=== PATIENT | male | born 1975 | race Caucasian/White ===

== ENCOUNTER → 2024-12-07 13:28 | Outpatient (CLI) | payer MEDICARE, MEDICAID, SELFPAY ==
--- NOTE | 2024-12-07 13:43 | DI.US.S_ITS ---
PROCEDURE: US SOFT TISSUE HEAD AND NECK INDICATIONS: LEFT SUBMANDIBULAR LUMP TECHNIQUE: Real-time scanning was performed of the neck region of interest, with image documentation. COMPARISON: None. FINDINGS: Normal subcutaneous tissue fascial planes. No evidence of mass lesion. IMPRESSION: Unremarkable soft tissue ultrasound. Approved by: Selvin Zavala M.D. on 12/08/2024 at 12:58
--- NOTE | 2024-12-07 13:43 | DI.US.S_ITS ---
PROCEDURE: US SCROTUM INDICATIONS: SCROTAL PAIN X 20 YEARS TECHNIQUE: Real-time scanning was performed of the scrotum and testicles, with image documentation. Color and pulse Doppler interrogation was performed of both testicles. COMPARISON: None. FINDINGS: Right: Testicle is normal in size at 4.4 x 2.5 x 3.1 cm, and homogenous in echotexture. Epididymis is normal in overall size and morphology. No hydrocele or varicoceles. Overlying scrotal skin is normal in thickness. Left: Testicle is normal in size at 4.0 x 2.4 x 2.8 cm, and homogeneous in echotexture. Epididymis is normal in overall size and morphology. No hydrocele or varicoceles. Overlying scrotal skin is normal in thickness. Doppler: Color and pulse Doppler demonstrate normal and symmetric arterial flow in both testicles. IMPRESSION: No cause for patient's pain is identified. Normal appearance of the testes and epididymides. Dictated by: Micah Chirinos M.D. on 12/08/2024 at 8:28 Approved by: Micah Chirinos M.D. on 12/08/2024 at 8:31
== END ==
PROVIDERS: Family Provider Family Medicine; Referring Provider Family Medicine; Visit Provider Family Medicine
DX: N50.89 Other specified disorders of the male genital organs; J39.8 Other specified diseases of upper respiratory tract
CPT/HCPCS: 76536; 76870; 93975

== ENCOUNTER 2025-04-22 16:19 | Inpatient (IN) | payer MEDICARE, MEDICAID, SELFPAY ==
[2025-04-22] VITALS (16 sets, daily range): BP systolic 105–138; BP diastolic 62–83; PULSE 72–107; RESP 10–20; TEMP 36.2–36.7; O2SAT 91–100; BMI 29.4; BMI 28.5
--- NOTE | 2025-04-22 17:49 | DI.RAD.S_ITS ---
PROCEDURE: XR CHEST 1V INDICATIONS: suspected sepsis TECHNIQUE: One view of the chest was acquired. COMPARISON: None. FINDINGS: Surgical changes and devices: None. Lungs and pleura: Lungs are clear. No pleural effusions or pneumothorax. Mediastinum: Mediastinal contours appear normal. Heart size is normal. Bones and chest wall: No suspicious bony lesions. Overlying soft tissues appear unremarkable. IMPRESSION: No acute cardiopulmonary abnormality is seen. Dictated by: Alena Roper M.D. on 04/22/2025 at 17:23 Approved by: Alena Roper M.D. on 04/22/2025 at 17:23
[2025-04-22 17:55] LABS: Add Manual Diff / Slide Review NO; Hematocrit 46.1 % (41-53); Hemoglobin 15.6 g/dL (13.5-17.5); Lymphocytes Absolute Auto 1600 /uL (1100-4500); Mean Corpuscular HGB Conc 33.9 % (30-36); Mean Corpuscular Hemoglobin 31.9 PG (26-34); Mean Corpuscular Volume 94.2 fL (80-100); Platelet Count 173 X10^3/uL (150-400)
[2025-04-22 18:02] LABS: INR 1.0 (0.9-1.3); Prothrombin Time 11.6 SECONDS (9.4-12.5)
[2025-04-22 18:05] LABS: PTT Partial Thromboplastin Tim 29 SECONDS (25.1-36.5)
[2025-04-22 18:06] LABS: Alanine Aminotransferase 27 IU/L (<50); Albumin 4.7 g/dL (3.5-5.0); Albumin Globulin Ratio 1.5 (1.0-2.8); Alkaline Phosphatase 84 U/L (38-126); Blood Urea Nitrogen 7 mg/dL (9-20); Calcium 9.2 mg/dL (8.4-10.2); Carbon Dioxide 24 mmol/L (22-32); Chloride 107 mmol/L (98-107); Estimated Glomerular Filt Rate > 60 mL/min (>60); Globulin 3.1 g/dL (1.7-4.1); Glucose 71 mg/dL (70-99); HEMOLYSIS 18 (0-50); Lactate (Lactic Acid) 1.4 mmol/L (0.7-2.1); Lipase 31 U/L (23-300); Potassium 3.6 mmol/L (3.4-5.1); Sodium 140 mmol/L (137-145); Total Protein 7.8 g/dL (6.3-8.2)
[2025-04-22] MEDS: SODIUM CHLORIDE 0.9% 1,000 ML 1000 ML IV ×2 (18:08→19:30)
[2025-04-22 18:23] LABS: Procalcitonin 0.113 ng/mL (<0.5)
--- NOTE | 2025-04-22 18:38 | DI.CT.S_ITS ---
PROCEDURE: CT HAND RIGHT WITH CON INDICATIONS: cat bite TECHNIQUE: Multiple contiguous axial CT images were obtained through the region of the right hand after the uneventful administration of 80 cc Isovue-300. Sagittal and coronal reconstructions were performed. COMPARISON: None. FINDINGS: Image quality: Excellent. Bones: There is anatomic alignment. No focal osseous lesion seen. Soft tissues: There is significant edema dorsally in the carpal region extending to the proximal to mid metatarsals. Multiple gas locules also seen in this region, extending proximally to the wrist laterally. Distally the gas extends to the distal metacarpal level. No confluent fluid collection seen. IMPRESSION: 1. There is extensive amount of soft tissue gas seen dorsally in the hand, with associated edema. Please correlate for the extent of penetrating injury, however, given the morphological appearance and the lack of obvious skin defect, this is suspicious for infection with gas-forming organisms such as necrotizing fasciitis. 2. No confluent abscess. No acute focal osseous lesions or definite foreign body seen. Dictated by: Rogerio Resendez M.D. on 04/22/2025 at 19:46 Approved by: Rogerio Resendez M.D. on 04/22/2025 at 19:52
[2025-04-22] MEDS: droPERidol 2.5 MG/ML VIAL 0.625 MG IV (19:31)
[2025-04-22] MEDS: KETOROLAC 30 MG/ML VIAL 15 MG IV (19:32)
[2025-04-22] MEDS: cefTRIAXone 2,000 MG in SODIUM CHLORIDE 0.9% 100 ML 200 MG IV (19:33)
[2025-04-22] MEDS: diphenhydrAMINE 50 MG/ML VIAL 25 MG IV (19:33)
[2025-04-22] MEDS: metroNIDAZOLE 500 MG/100 ML PIGGYBACK 100 MG IV (19:34)
[2025-04-22] MEDS: OXYCODONE/ACETAMINOPHEN 5/325 TABLET 1 TAB PO (19:34)
--- NOTE | 2025-04-22 21:21 | ED_ITS ---
HPI - Animal Bite General Chief Complaint: Animal Bite Stated Complaint: animal bite-cat, Rt hand Time Seen by Provider: 04/22/25 18:06 History of Present Illness HPI narrative: 49-year-old gentleman with a history of mental health disorder for which she takes quetiapine, chronic headaches for which he uses topiramate, asthma, hyperlipidemia, chronic headaches for which cyclobenzaprine and amitriptyline are prescribed comes in after having his cat bite his right hand. There was multiple puncture wounds over the dorsum of the right hand the right hand swollen. Extending line of cellulitis extending just past the wrist. Increasing pain with some minor purulence from the puncture wounds. No body aches or fevers. Lives on [place] Related Data Allergies Allergy/AdvReac Type Severity Reaction Status Date / Time omeprazole AdvReac Verified 04/22/25 16:37 Review of Systems Review of Systems Narrative: Pertinent positive and negative findings as per HPI Patient History Medical History (Updated 04/22/25 @ 22:54 by Layne Dao MD) Chronic headaches Hyperlipidemia Asthma Sleep disorder Smoking Status: Never smoker Exam Initial Vital Signs Initial Vital Signs: Vital Signs Temperature 97.7 F 04/22/25 16:35 Pulse Rate 107 H 04/22/25 16:35 Respiratory Rate 16 04/22/25 16:35 Blood Pressure 132/74 04/22/25 16:35 Pulse Oximetry 100 04/22/25 16:35 Oxygen Delivery Method Room Air 04/22/25 16:35 General: Alert appropriate in no acute distress Respiratory: Able to speak in full sentences, no obvious respiratory distress Skin: No obvious rashes, warm and dry Neurologic: Grossly intact no obvious asymmetries or abnormalities Psych: appropriate insight and affect, cooperative Right hand: Erythematous swelling through the entire dorsum, multiple puncture wounds over the dorsum none involving the palmar surface. Expanding cellulitic line just proximal to the wrist without lymphangitic spread Course Orders Ordered: ED Orders 04/22/25 17:30 Complete Blood Count AUTO DIFF Stat Comprehensive Metabolic Panel Stat Lactate (Lactic Acid) Stat Lipase Stat PTT Partial Thromboplastin Paul Stat Procalcitonin Stat Prothrombin Time INR Stat 04/22/25 17:40 Blood Culture Stat 04/22/25 17:49 XR chest 1V Stat RT Consult Eval and Treat NOW 04/22/25 18:38 Ct Hand right with con Stat Ondansetron HCl (Ondansetron 4 Mg/2 Ml Inj) 4 mg IV NOW PRN PRN Reason: Nausea And Vomiting Ondansetron HCl (Ondansetron 4 Mg Odt) 4 mg PO NOW PRN PRN Reason: Nausea And Vomiting Discontinued Medications Diphenhydramine HCl (Diphenhydramine 50 Mg/Ml Vial) 25 mg IV NOW ONE Stop: 04/22/25 18:39 Last Admin: 04/22/25 19:33 Dose: 25 mg Documented By: RB Droperidol (Droperidol 2.5 Mg/Ml Vial) 0.625 mg IV NOW ONE Stop: 04/22/25 18:39 Last Admin: 04/22/25 19:31 Dose: 0.625 mg Documented By: RB Sodium Chloride (Normal Saline 0.9%) 1,000 mls @ 1,000 mls/hr IV BOLUS ONE Stop: 04/22/25 18:47 Last Infusion: 04/22/25 19:30 Dose: Infused Documented By: Admin: 04/22/25 18:08 Dose: 1,000 mls/hr Documented By: RB Ceftriaxone Sodium 2,000 mg/ (Sodium Chloride) 100 mls @ 200 mls/hr IV NOW ONE Stop: 04/22/25 18:39 Last Infusion: 04/22/25 20:18 Dose: Infused Documented By: Admin: 04/22/25 19:33 Dose: 200 mls/hr Documented By: RB Metronidazole (Flagyl) 500 mg in 100 mls @ 100 mls/hr IV NOW ONE Stop: 04/22/25 19:37 Last Infusion: 04/22/25 20:52 Dose: Infused Documented By: Admin: 04/22/25 19:34 Dose: 100 mls/hr Documented By: RB Sodium Chloride (Normal Saline 0.9%) 1,000 mls @ 1,000 mls/hr IV BOLUS ONE Stop: 04/22/25 19:37 Last Infusion: 04/22/25 20:53 Dose: Infused Documented By: Admin: 04/22/25 19:30 Dose: 1,000 mls/hr Documented By: RB Ketorolac Tromethamine (Ketorolac 30 Mg/Ml Vial) 15 mg IV NOW ONE Stop: 04/22/25 18:39 Last Admin: 04/22/25 19:32 Dose: 15 mg Documented By: EVIE Oxycodone/Acetaminophen (Oxycodone/Acetaminophen 5/325 Tablet) 1 tab PO NOW ONE Stop: 04/22/25 18:39 Last Admin: 04/22/25 19:34 Dose: 1 tab Documented By: EVIE Vital Signs Vital signs: Vital Signs - 8 hr 04/22/25 16:35 04/22/25 17:46 04/22/25 17:47 Temperature 97.7 F Pulse Rate 107 H 100 H Respiratory Rate 16 Blood Pressure 132/74 Pulse Oximetry 100 91 100 Oxygen Delivery Method Room Air 04/22/25 17:47 04/22/25 18:00 04/22/25 18:00 Temperature Pulse Rate 102 H Respiratory Rate Blood Pressure 114/75 118/79 Pulse Oximetry 100 Oxygen Delivery Method 04/22/25 18:30 04/22/25 18:30 04/22/25 19:00 Temperature Pulse Rate 99 H 94 H Respiratory Rate 11 L 12 Blood Pressure 128/72 Pulse Oximetry 100 100 Oxygen Delivery Method 04/22/25 19:30 04/22/25 19:42 04/22/25 19:42 Temperature Pulse Rate 92 H 92 H Respiratory Rate 11 L 13 Blood Pressure 131/72 Pulse Oximetry 99 100 Oxygen Delivery Method 04/22/25 20:00 04/22/25 20:00 Temperature Pulse Rate 89 Respiratory Rate 11 L Blood Pressure 121/73 Pulse Oximetry 100 Oxygen Delivery Method Room Air MDM - Animal Bite Lab Data 04/22/25 17:30 04/22/25 17:30 Labs: Lab Results 04/22/25 Range/Units 17:30 WBC 9.4 (4.5-11.0) X10^3/uL RBC 4.90 (4.5-5.9) X10^6/uL Hgb 15.6 (13.5-17.5) g/dL Hct 46.1 (41-53) % MCV 94.2 (80-100) fL MCH 31.9 (26-34) PG MCHC 33.9 (30-36) % RDW 14.4 (11.6-14.8) % Plt Count 173 (150-400) X10^3/uL Neut % (Auto) 73.0 (50-75) % Lymph % (Auto) 16.6 L (25-40) % [place] % (Auto) 9.0 (3-14) % Eos % (Auto) 1.1 L (2-4) % Baso % (Auto) 0.3 (0-2) % Neut # (Auto) 6800 (2429-2664) /uL Lymph # (Auto) 1600 (8585-4903) /uL [place] # (Auto) 800 (0-900) /uL Eos # (Auto) 100 (0-450) /uL Baso # (Auto) 0 (0-100) /uL PT 11.6 (9.4-12.5) SECONDS INR 1.0 (0.9-1.3) APTT 29 (25.1-36.5) SECONDS Sodium 140 (137-145) mmol/L Potassium 3.6 (3.4-5.1) mmol/L Chloride 107 (98-107) mmol/L Carbon Dioxide 24 (22-32) mmol/L BUN 7 L (9-20) mg/dL Creatinine 1.15 (0.66-1.25) mg/dL Estimated GFR > 60 (>60) mL/min BUN/Creatinine Ratio 6.1 (6-22) Glucose 71 (70-99) mg/dL Lactate 1.4 (0.7-2.1) mmol/L Calcium 9.2 (8.4-10.2) mg/dL Total Bilirubin 0.9 (0.2-1.3) mg/dL AST 28 (17-59) IU/L ALT 27 (<50) IU/L Alkaline Phosphatase 84 (38-126) U/L Total Protein 7.8 (6.3-8.2) g/dL Albumin 4.7 (3.5-5.0) g/dL Globulin 3.1 (1.7-4.1) g/dL Albumin/Globulin Ratio 1.5 (1.0-2.8) Lipase 31 (23-300) U/L Procalcitonin 0.113 (<0.5) ng/mL Urine Dip Bedside Urine Glucose Negative Bedside Urine Bilirubin - Negative Bedside Urine Ketone - Negative Urine Specific [place] 1.005 Bedside Urine Occult Blood - Negative Bedside Urine pH 7.0 Bedside Urine Protein - Negative Bedside Urine Urobilinogen - Negative Bedside Urine Nitrite - Negative Bedside Urine Leukocytes - Negative Esterase Imaging Data CT hand: Radiologist's Impression: PROCEDURE: CT HAND RIGHT WITH CON INDICATIONS: cat bite TECHNIQUE: Multiple contiguous axial CT images were obtained through the region of the right hand after the uneventful administration of 80 cc Isovue-300. Sagittal and coronal reconstructions were performed. COMPARISON: None. FINDINGS: Image quality: Excellent. Bones: There is anatomic alignment. No focal osseous lesion seen. Soft tissues: There is significant edema dorsally in the carpal region extending to the proximal to mid metatarsals. Multiple gas locules also seen in this region, extending proximally to the wrist laterally. Distally the gas extends to the distal metacarpal level. No confluent fluid collection seen. IMPRESSION: 1. There is extensive amount of soft tissue gas seen dorsally in the hand, with associated edema. Please correlate for the extent of penetrating injury, however, given the morphological appearance and the lack of obvious skin defect, this is suspicious for infection with gas-forming organisms such as necrotizing fasciitis. 2. No confluent abscess. No acute focal osseous lesions or definite foreign body seen. Dictated by: Rogerio Resendez M.D. on 04/22/2025 at 19:46 MDM Narrative Medical decision making narrative: CC: Cat bite right hand, domestic cat Complicating co-morbidities: Lives in [place], sleeping disorder, he is not sure what his psychiatric diagnosis is for the quetiapine, chronic headache, hyperlipidemia Data collected from: patient, partner Social determinants of health that may influence the patients condition: Live on [place] Medical records reviewed: No records are available Differential considered: Superficial infection, deep tissue infection, sepsis Exam documented above, pertinent findings include: Tachycardia, mild tachypnea, obvious pain, right hand swollen with multiple puncture wounds and increasing cellulitis past the wrist Lab Test results independently reviewed as above. Pertinent findings: CBC shows a white count of 9.4 Chemistries are reassuring Procalcitonin is not elevated Imaging studies independently reviewed: CT scan is concerning for quite a bit of air in the subcutaneous tissue concerning for gas-forming bacteria. Consultations: Orthopedic surgery, hospitalist Treatments: Ceftriaxone and Flagyl along with fluids initially started. Vancomycin added Discussion: 49-year-old gentleman with a cat bite to the right hand CT scan shows quite a bit of air in the soft tissue, clinical exam shows increasing cellulitis and in the time he has been in the emergency department is now beginning have lymphangitic streaking of the inner portion of his forearm. Labs do not show significant leukocytosis or sepsis at this time. CT scan was reviewed in real-time with our orthopedic surgeon who came into examined the patient and will take him to the operating room to make sure that the wounds are appropriately draining. Care is reviewed with our evening hospitalist and patient will be admitted to the hospitalist service for cellulitis of the right hand post operative I and D all secondary to cat bite. Findings are reviewed with the patient his he understands reason for admission, recommendations for surgery and current plan for admission. Discharge Plan Departure Patient Disposition: Admitted As Inpatient Clinical Impression: Cellulitis of hand, right Cat bite Qualifiers: Encounter type: initial encounter Qualified Code(s): W55.01XA - Bitten by cat, initial encounter Admit Date/Time: 04/22/25 22:08 Admit Provider: Delbert Julio
[2025-04-22] MEDS: TET,DIPH,PERTUSS(ACELL),VAC/PF 0.5 ML SYRINGE IM (21:46)
--- NOTE | 2025-04-22 22:02 | P.CONS_ITS ---
History of Present Illness Consult details Date Patient Seen: 04/22/25 Time Patient Seen: 22:04 Chief complaint: animal bite-cat, Rt hand Reason for consult: Cat bite to right hand with infection Requesting provider: Layne Dao Narrative: Jose is a 49-year-old right-hand dominant male presenting to the emergency room today for complaint of a cat bite to his right hand that occurred less than 24 hours ago. Since the time of the initial bite, the hand has become more painful, swollen, and red. He denies any current numbness or tingling in the hand. Meds Home Medications and Allergies Allergies Allergy/AdvReac Type Severity Reaction Status Date / Time omeprazole AdvReac Verified 04/22/25 16:37 Review of Systems Review of Systems ROS: Yes All systems reviewed with the patient and are negative except as otherwise documented Exam Vital Signs (past 8 hours): - 04/22/25 16:35 04/22/25 17:46 04/22/25 17:47 Temperature 97.7 F Pulse Rate 107 H 100 H Respiratory Rate 16 Blood Pressure 132/74 Pulse Oximetry 100 91 100 Oxygen Delivery Method Room Air 04/22/25 17:47 04/22/25 18:00 04/22/25 18:00 Temperature Pulse Rate 102 H Respiratory Rate Blood Pressure 114/75 118/79 Pulse Oximetry 100 Oxygen Delivery Method 04/22/25 18:30 04/22/25 18:30 04/22/25 19:00 Temperature Pulse Rate 99 H 94 H Respiratory Rate 11 L 12 Blood Pressure 128/72 Pulse Oximetry 100 100 Oxygen Delivery Method 04/22/25 19:30 04/22/25 19:42 04/22/25 19:42 Temperature Pulse Rate 92 H 92 H Respiratory Rate 11 L 13 Blood Pressure 131/72 Pulse Oximetry 99 100 Oxygen Delivery Method 04/22/25 20:00 04/22/25 20:00 Temperature Pulse Rate 89 Respiratory Rate 11 L Blood Pressure 121/73 Pulse Oximetry 100 Oxygen Delivery Method Room Air Oxygen Delivery Method Room Air Extrem Other: Right hand shows gross swelling of the dorsum of the hand extending toward the 1st webspace area. There is diffuse erythema. He has approximately 8 separate puncture wounds primarily over the dorsum of the hand which have some yellowish drainage. Range of motion of the digits is limited but active motion is present. Distal sensation is intact to light touch throughout the radial, ulnar, and median nerve distributions. CT scan of the right hand performed April 22, 2025 is personally assessed. There is diffuse soft tissue swelling over the dorsum of the hand along with diffuse gas present in the dorsal soft tissues. Objective Labs 04/22/25 17:30 04/22/25 17:30 Labs: Laboratory Results - last 24 hr 04/22/25 17:30 WBC 9.4 RBC 4.90 Hgb 15.6 Hct 46.1 MCV 94.2 MCH 31.9 MCHC 33.9 RDW 14.4 Plt Count 173 Neut % (Auto) 73.0 Lymph % (Auto) 16.6 L [place] % (Auto) 9.0 Eos % (Auto) 1.1 L Baso % (Auto) 0.3 Neut # (Auto) 6800 Lymph # (Auto) 1600 [place] # (Auto) 800 Eos # (Auto) 100 Baso # (Auto) 0 PT 11.6 INR 1.0 APTT 29 Sodium 140 Potassium 3.6 Chloride 107 Carbon Dioxide 24 BUN 7 L Creatinine 1.15 Estimated GFR > 60 BUN/Creatinine Ratio 6.1 Glucose 71 Lactate 1.4 Calcium 9.2 Total Bilirubin 0.9 AST 28 ALT 27 Alkaline Phosphatase 84 Total Protein 7.8 Albumin 4.7 Globulin 3.1 Albumin/Globulin Ratio 1.5 Lipase 31 Procalcitonin 0.113 [facility] Medical History Chronic headaches Hyperlipidemia Asthma Sleep disorder Tobacco & Substance Use Smoking Status: Never smoker Assessment & Plan Assessment & Plan narrative: Jose has an acute soft tissue infection of the right hand secondary to a cat bite that occurred yesterday. The presence of diffuse subcutaneous gas suggest this to be a rapidly progressing infection and warrants surgical incision and drainage. This diagnosis and its management options were discussed with the patient today. I recommend that we proceed with surgery emergently to help control the infection followed by admission with IV antibiotics. Risks of the surgery were discussed today. These included, but were not limited to: Bleeding, infection, drug reactions, neurovascular injury, incomplete pain relief, stiffness, and . Patient voiced understanding acceptance of the risks. We will work on getting him to the operating room immediately for incision and drainage. Time-Based Coding :: [TOTAL MINUTES] spent with patient and on the chart (including review of chart, obtaining history, exam, reviewing outside data, placing orders, documenting exam and treatment plan, and counseling patient) on [DATE]. PROFEE Charge Codes Inpatient or Observation consultation: [id number]
[2025-04-22] MEDS: VANCOMYCIN 1,000 MG in SODIUM CHLORIDE 0.9% 250 ML 250 MG IV (22:53)
[2025-04-22] MEDS: LACTATED RINGERS 1,000 ML 42 ML IV (22:53)
[2025-04-22] MEDS: ACETAMINOPHEN IV 1,000 MG/100 ML VIAL 400 MG IV (23:30)
--- NOTE | 2025-04-22 23:32 | SUR.OPER ---
Supine on padded OR bed, head on pillow, left arm secured on padded arm boards at <90 degrees abduction, right arm on arm table, legs uncrossed, safety belt at thigh
[2025-04-23] VITALS (12 sets, daily range): BP systolic 103–127; BP diastolic 53–87; PULSE 73–99; RESP 11–20; TEMP 36.2–36.9; O2SAT 95–100; BMI 28.5
[2025-04-23] MEDS: ONDANSETRON 4 MG/2 ML INJ IV (00:18)
[2025-04-23] MEDS: OXYCODONE IR 5 MG TABLET PO (00:18)
[2025-04-23] MEDS: SODIUM CHLORIDE 0.9% 1,000 ML 100 ML IV ×2 (01:00→13:30)
[2025-04-23] MEDS: metroNIDAZOLE 500 MG/100 ML PIGGYBACK 100 MG IV ×4 (01:01→20:13)
[2025-04-23] MEDS: VANCOMYCIN 750 MG/150 ML PIGGYBACK 150 MG IV (02:00)
--- NOTE | 2025-04-23 03:30 | P.HP_ITS ---
History of Present Illness History of Present Illness Date Patient Seen: 04/22/25 Time Patient Seen: 23:26 Chief complaint: animal bite-cat, Rt hand Narrative: 49-year-old male with no reported past medical history presents with right hand dominant cat bite. Of note the patient presented to our ER with a cat bite to his right hand. The patient states that this is his actual cat who bit him. The patient noticed increasing pain and drainage to the site. There is also significant swelling. The patient otherwise denies any fever, chills, nausea, vomiting, diarrhea, chest pain or shortness of breath. In our emergency room, the patient was hemodynamically stable without sign of sepsis. All labs were relatively benign. CT scan of the right hand shows soft tissues swelling diffusely over the dorsum of the hand with diffuse gas present in the dorsal soft tissues. Orthopedic surgeon was consulted immediately and recommended that we admit the patient for IV antibiotic and will take the patient to the OR immediately. The patient was given IV vancomycin IV ceftriaxone and IV Flagyl. The patient was taken straight from our ER to the the OR by orthopedic surgeon. [facility] Medical History Chronic headaches Hyperlipidemia Asthma Sleep disorder Social History household members: significant other Smoking Status: Never smoker Meds Home Medications and Allergies Allergies Allergy/AdvReac Type Severity Reaction Status Date / Time omeprazole AdvReac Verified 04/22/25 16:37 Review of Systems Review of Systems ROS: Yes All systems reviewed with the patient and are negative except as otherwise documented Exam Vital Signs (past 8 hours): - 04/22/25 19:42 04/22/25 19:42 04/22/25 20:00 Temperature Pulse Rate 92 H 89 Respiratory Rate 13 11 L Blood Pressure 131/72 Pulse Oximetry 100 100 Oxygen Delivery Method Room Air Oxygen Flow Rate 04/22/25 20:00 04/22/25 20:30 04/22/25 20:30 Temperature Pulse Rate 82 Respiratory Rate 10 L Blood Pressure 121/73 125/74 Pulse Oximetry 99 Oxygen Delivery Method Oxygen Flow Rate 04/22/25 21:00 04/22/25 21:02 04/22/25 21:30 Temperature Pulse Rate 90 Respiratory Rate 20 Blood Pressure 115/62 131/83 Pulse Oximetry 97 Oxygen Delivery Method Oxygen Flow Rate 04/22/25 21:30 04/22/25 22:00 04/22/25 22:00 Temperature Pulse Rate 77 82 Respiratory Rate 10 L 13 Blood Pressure 124/73 Pulse Oximetry 100 100 Oxygen Delivery Method Room Air Oxygen Flow Rate 04/22/25 22:30 04/22/25 23:56 04/23/25 00:05 Temperature 97.2 F L 98.1 F Pulse Rate 84 72 83 Respiratory Rate 16 12 11 L Blood Pressure 138/83 105/63 126/73 Pulse Oximetry 98 94 95 Oxygen Delivery Method Room Air Room Air Room Air Oxygen Flow Rate 04/23/25 00:10 04/23/25 00:21 04/23/25 00:35 Temperature Pulse Rate 78 77 75 Respiratory Rate 12 16 16 Blood Pressure 127/72 127/83 125/53 L Pulse Oximetry 96 98 97 Oxygen Delivery Method Room Air Room Air Oxygen Flow Rate 0 04/23/25 00:50 04/23/25 01:13 04/23/25 01:52 Temperature Pulse Rate 77 82 83 Respiratory Rate Blood Pressure 124/85 120/81 116/82 Pulse Oximetry Oxygen Delivery Method Oxygen Flow Rate 04/23/25 02:56 Temperature Pulse Rate 74 Respiratory Rate Blood Pressure 108/74 Pulse Oximetry Oxygen Delivery Method Oxygen Flow Rate Oxygen Delivery Method Room Air Oxygen Flow Rate 0 Narrative Exam Narrative: Physical Exam: GENERAL: The patient is not in any acute distressed. Awake and alert. HEENT: Nonicteric sclerae, PERRLA, EOMI. Oropharynx clear. Moist mucous membranes. Conjunctivae appear well perfused. HEART: Regular rate and rhythm without murmurs. No lower extremities edema. LUNGS: Clear to auscultation bilaterally. No wheezing, crackles or rhonchi ABDOMEN: Soft, positive bowel sounds, nontender. SKIN:Dorsum of right hand has significant swelling with wound from cat bite with some drainage noted. No rash, no excessive bruising, petechiae, or purpura. NEUROLOGIC: AxO x 3. Cranial nerves II-XII intact without motor/sensory deficit. Objective Labs 04/22/25 17:30 04/22/25 17:30 Labs: Laboratory Results - last 24 hr 04/22/25 17:30 WBC 9.4 RBC 4.90 Hgb 15.6 Hct 46.1 MCV 94.2 MCH 31.9 MCHC 33.9 RDW 14.4 Plt Count 173 Neut % (Auto) 73.0 Lymph % (Auto) 16.6 L [place] % (Auto) 9.0 Eos % (Auto) 1.1 L Baso % (Auto) 0.3 Neut # (Auto) 6800 Lymph # (Auto) 1600 [place] # (Auto) 800 Eos # (Auto) 100 Baso # (Auto) 0 PT 11.6 INR 1.0 APTT 29 Sodium 140 Potassium 3.6 Chloride 107 Carbon Dioxide 24 BUN 7 L Creatinine 1.15 Estimated GFR > 60 BUN/Creatinine Ratio 6.1 Glucose 71 Lactate 1.4 Calcium 9.2 Total Bilirubin 0.9 AST 28 ALT 27 Alkaline Phosphatase 84 Total Protein 7.8 Albumin 4.7 Globulin 3.1 Albumin/Globulin Ratio 1.5 Lipase 31 Procalcitonin 0.113 Assessment & Plan Assessment & Plan narrative: Right hand cat bite with diffuse gas present in the dorsal soft tissues. Admit the patient to medical inpatient. Continue empiric antibiotic with IV vancomycin IV Flagyl and IV ceftriaxone. The patient is currently in the OR for now and is having surgical intervention per orthopedic surgery for incision and drainage. Appreciate further input and management per orthopedic surgery. Pain control. Note patient not septic and hemodynamically stable DVT prophylaxis SCDs and ambulation CODE STATUS full code. Disposition likely home in 2 days - As the provider of this telehealth evaluation, requested by the patient's evaluating physician, I attest that I introduced myself to the patient, provided my credentials and determined that telemedicine via a real-time, 2 way interactive audio and video platform is an appropriate and effective means of providing this service. - I reviewed the patient's chart and had a discussion with the member of the patient's treatment team. - The patient and I mutually agreed with continuation of this evaluation via telemedicine. The patient consented for the telemedicine evaluation. - This virtual encounter was taken place from [place] by Dr. Delbert Julio. The patient was evaluated at [facility]. The encounter was approximately 35 minutes. The nurse was present during the entire time of the encounter and was able to move the stethoscope in appropriate directions. Time-Based Coding :: [TOTAL MINUTES] spent with patient and on the chart (including review of chart, obtaining history, exam, reviewing outside data, placing orders, documenting exam and treatment plan, and counseling patient) on [DATE]. Quality VTE Deep Vein Thrombosis/Pulmonary Embolism Present on Admission: No
[2025-04-23] MEDS: HYDROCODONE/ACET 5/325 TABLET 1 TAB PO ×4 (05:33→20:13)
--- NOTE | 2025-04-23 07:39 | PM.PN.1 ---
Subjective Subjective Date Patient Seen: 04/23/25 Interval history: He is recovering routinely after his right hand surgery last night. He tells me that he lives on [address] and is disabled. His topiramate will be resumed. The CBC and liver function tests from yesterday are normal. He is on vancomycin, Flagyl and ceftriaxone. Exam Vital Signs (past 8 hours): - 04/22/25 23:56 04/23/25 00:05 04/23/25 00:10 Temperature 98.1 F Pulse Rate 72 83 78 Respiratory Rate 12 11 L 12 Blood Pressure 105/63 126/73 127/72 Pulse Oximetry 94 95 96 Oxygen Delivery Method Room Air Room Air Room Air Oxygen Flow Rate 04/23/25 00:21 04/23/25 00:35 04/23/25 00:50 Temperature Pulse Rate 77 75 77 Respiratory Rate 16 16 Blood Pressure 127/83 125/53 L 124/85 Pulse Oximetry 98 97 Oxygen Delivery Method Room Air Oxygen Flow Rate 0 04/23/25 01:13 04/23/25 01:52 04/23/25 02:56 Temperature Pulse Rate 82 83 74 Respiratory Rate Blood Pressure 120/81 116/82 108/74 Pulse Oximetry Oxygen Delivery Method Oxygen Flow Rate 04/23/25 04:18 Temperature Pulse Rate 73 Respiratory Rate Blood Pressure 103/72 Pulse Oximetry Oxygen Delivery Method Oxygen Flow Rate Oxygen Delivery Method Room Air Oxygen Flow Rate 0 Narrative Exam Narrative: He is alert and oriented x3. He tells me he remembers me from 20 years ago. No apparent distress. Right hand swollen and in a dressing wrapped. Heart is regular rate and rhythm without murmur Lungs are clear to auscultation bilaterally Objective Labs 04/23/25 08:26 04/23/25 08:26 Labs: Laboratory Results - last 24 hr 04/22/25 17:30 WBC 9.4 RBC 4.90 Hgb 15.6 Hct 46.1 MCV 94.2 MCH 31.9 MCHC 33.9 RDW 14.4 Plt Count 173 Neut % (Auto) 73.0 Lymph % (Auto) 16.6 L [place] % (Auto) 9.0 Eos % (Auto) 1.1 L Baso % (Auto) 0.3 Neut # (Auto) 6800 Lymph # (Auto) 1600 [place] # (Auto) 800 Eos # (Auto) 100 Baso # (Auto) 0 PT 11.6 INR 1.0 APTT 29 Sodium 140 Potassium 3.6 Chloride 107 Carbon Dioxide 24 BUN 7 L Creatinine 1.15 Estimated GFR > 60 BUN/Creatinine Ratio 6.1 Glucose 71 Lactate 1.4 Calcium 9.2 Total Bilirubin 0.9 AST 28 ALT 27 Alkaline Phosphatase 84 Total Protein 7.8 Albumin 4.7 Globulin 3.1 Albumin/Globulin Ratio 1.5 Lipase 31 Procalcitonin 0.113 [facility] Medical History Chronic headaches Hyperlipidemia Asthma Sleep disorder Social History household members: significant other Smoking Status: Never smoker Assessment & Plan Assessment & Plan narrative: Cat bite abscess, present on admission. Active. Right hand cat bite with diffuse gas present in the dorsal soft tissues. Continue IV vancomycin, IV Flagyl and IV ceftriaxone. Status post incision and drainage per orthopedics 04/22. Cultures pending. Chronic headaches, present on admission. Stable. Resume topiramate DVT prophylaxis SCDs and ambulation CODE STATUS full code. Disposition likely home in 2 days Time-Based Coding :: [TOTAL MINUTES] spent with patient and on the chart (including review of chart, obtaining history, exam, reviewing outside data, placing orders, documenting exam and treatment plan, and counseling patient) on [DATE]. Quality VTE Deep Vein Thrombosis/Pulmonary Embolism Present on Admission: No
[2025-04-23 08:46] LABS: Add Manual Diff / Slide Review NO; Hematocrit 42.4 % (41-53); Hemoglobin 14.3 g/dL (13.5-17.5); Lymphocytes Absolute Auto 800 /uL (1100-4500); Mean Corpuscular HGB Conc 33.6 % (30-36); Mean Corpuscular Hemoglobin 32.1 PG (26-34); Mean Corpuscular Volume 95.3 fL (80-100); Platelet Count 145 X10^3/uL (150-400)
--- NOTE | 2025-04-23 08:49 | P.OP_ITS ---
Operative Date/Time/Diagnoses Date of procedure: 04/22/25 Time of procedure: 23:00 Pre-op diagnosis: Right hand infection from cat bite Post-op diagnosis: same Procedure & Clinicians Procedure: Incision and drainage of right dorsal hand infection Same procedure(s) as scheduled: Yes Indications: Gas producing infection of dorsal right hand. Surgeon: Byron Carrera Click Yes if Unassisted: Yes Anesthesia Type: General Operative Notes Findings: Serous abscess of the dorsal right hand. Closure Type: non-primary Specimen(s): other (Cultures from right hand) Applied: none Estimated Blood Loss (mL): 2 Blood products transfused: none Tourniquet time (min): 17 Procedure in detail: Patient was seen in the holding area and the surgical site was marked with an indelible marker. He was then taken to the operating room and placed on the operating table in supine position. General anesthesia was then induced by the anesthesia team and the airway was secured with an endotracheal tube. A well-padded tourniquet was placed around the right upper extremity proximally. The right upper extremity was then prepped with ChloraPrep and draped out usual sterile fashion. A dorsal longitudinal incision was made roughly in the area of the interosseous space between the 2nd and 3rd metacarpals through the skin to the subcutaneous tissues. The subcutaneous tissues were then spread using Metzenbaum scissors down into the serous abscess. A copious amount of thin serous purulent material was then discharged from the incision. Cultures were obtained. The extent of the abscess was then probed and developed using Metzenbaum scissors and digital dissection. Once the full extent of the abscess was explored. The wound was irrigated with 3 L of saline. The abscess void was then gently packed with iod oform gauze. The proximal and distal ends of the incision were loosely approximated with 4-0 nylon horizontal mattress sutures while leaving the iodoform exiting the central portion of the incision to allow for continued drainage. General anesthesia was reversed successfully and the patient was taken to the recovery room in stable condition. There were no complications. Complications: none Post-operative Condition: stable Disposition: PACU Plan for aftercare: Admission for IV Abx and observation of clinical course.
--- NOTE | 2025-04-23 09:16 | P.PN_ITS ---
Subjective Subjective Date Patient Seen: 04/23/25 Time Patient Seen: 09:16 Interval history: Patient reports no problems overnight. He continues to have pain in the right hand. Exam Vital Signs (past 8 hours): - 04/23/25 01:52 04/23/25 02:56 04/23/25 04:18 Pulse Rate 83 74 73 Blood Pressure 116/82 108/74 103/72 Oxygen Delivery Method Room Air Oxygen Flow Rate 0 Narrative Exam Narrative: Right hand dressing is clean, dry, and intact. He continues to have substantial soft tissue swelling of the digits. He has active extension and flexion of all digits. Sensation is intact to light touch throughout the radial, ulnar, and median nerve distributions. Objective Labs 04/23/25 08:26 04/22/25 17:30 Labs: Laboratory Results - last 24 hr 04/22/25 04/23/25 17:30 08:26 WBC 9.4 7.8 RBC 4.90 4.45 L Hgb 15.6 14.3 Hct 46.1 42.4 MCV 94.2 95.3 MCH 31.9 32.1 MCHC 33.9 33.6 RDW 14.4 14.4 Plt Count 173 145 L Neut % (Auto) 73.0 86.9 H Lymph % (Auto) 16.6 L 9.8 L [place] % (Auto) 9.0 3.0 Eos % (Auto) 1.1 L 0.1 L Baso % (Auto) 0.3 0.2 Neut # (Auto) 6800 6800 Lymph # (Auto) 1600 800 L [place] # (Auto) 800 200 Eos # (Auto) 100 0 Baso # (Auto) 0 0 PT 11.6 INR 1.0 APTT 29 Sodium 140 Potassium 3.6 Chloride 107 Carbon Dioxide 24 BUN 7 L Creatinine 1.15 Estimated GFR > 60 BUN/Creatinine Ratio 6.1 Glucose 71 Lactate 1.4 Calcium 9.2 Total Bilirubin 0.9 AST 28 ALT 27 Alkaline Phosphatase 84 Total Protein 7.8 Albumin 4.7 Globulin 3.1 Albumin/Globulin Ratio 1.5 Lipase 31 Procalcitonin 0.113 [facility] Medical History Chronic headaches Hyperlipidemia Asthma Sleep disorder Social History household members: significant other Smoking Status: Never smoker Assessment & Plan Assessment & Plan narrative: Postop day 1. From right hand abscess incision and drainage. Patient progressing as anticipated. Continue antibiotics per primary team. Encouraged patient to keep his hand elevated and work on [id number] exercises of his fingers to help reduce swelling. Pain control per primary team. Monitor results from cultures and tailor antibiotic treatment to these results when returned. We will keep the dressing on for another day and then begin daily dressing changes and removing approximately 4 in of iodoform gauze daily until wound is closed. Time-Based Coding :: [TOTAL MINUTES] spent with patient and on the chart (including review of chart, obtaining history, exam, reviewing outside data, placing orders, documenting exam and treatment plan, and counseling patient) on [DATE]. Quality VTE Deep Vein Thrombosis/Pulmonary Embolism Present on Admission: No [employer] Member Document charge(s): Yes
[2025-04-23] MEDS: VANCOMYCIN 1,500 MG/300 ML PIGGYBACK 200 MG IV ×2 (10:16→22:44)
[2025-04-23] MEDS: ENOXAPARIN 40 MG/0.4 ML SYRINGE SUBCUT (10:31)
[2025-04-23 10:59] LABS: Blood Urea Nitrogen 8 mg/dL (9-20); Calcium 8.3 mg/dL (8.4-10.2); Carbon Dioxide 16 mmol/L (22-32); Chloride 111 mmol/L (98-107); Estimated Glomerular Filt Rate > 60 mL/min (>60); Glucose 161 mg/dL (70-99); HEMOLYSIS < 15 (0-50); Potassium 4.6 mmol/L (3.4-5.1); Sodium 136 mmol/L (137-145)
[2025-04-23] MEDS: CYCLOBENZAPRINE 10 MG TABLET PO ×2 (15:10→20:13)
--- NOTE | 2025-04-23 18:56 | PC.NURSE ---
Day shift note: Up OOB ambulating in hallway. RUE elevated and ROM exercises performed. SCDs in place. IVF infusing. PO pain doctor of medicine with adequate relief. Calls appropriately for staff assist.
[2025-04-23] MEDS: FAMOTIDINE 20 MG TABLET PO (20:13)
[2025-04-23] MEDS: PRAVASTATIN 20 MG TABLET 10 MG PO (20:13)
[2025-04-23] MEDS: TOPIRAMATE 25 MG TABLET PO (20:13)
[2025-04-23] MEDS: cefTRIAXone 2,000 MG in SODIUM CHLORIDE 0.9% 100 ML 200 MG IV (21:37)
[2025-04-24] MEDS: SODIUM CHLORIDE 0.9% 1,000 ML 100 ML IV ×2 (00:39→15:42)
[2025-04-24] MEDS: metroNIDAZOLE 500 MG/100 ML PIGGYBACK 100 MG IV ×4 (02:55→20:26)
[2025-04-24] MEDS: HYDROCODONE/ACET 5/325 TABLET 1 TAB PO (07:34)
[2025-04-24] MEDS: FAMOTIDINE 20 MG TABLET PO ×2 (07:57→20:25)
[2025-04-24] MEDS: TOPIRAMATE 25 MG TABLET PO ×2 (07:58→20:25)
[2025-04-24] MEDS: CYCLOBENZAPRINE 10 MG TABLET PO ×3 (07:58→20:26)
[2025-04-24] MEDS: ENOXAPARIN 40 MG/0.4 ML SYRINGE SUBCUT (08:59)
--- NOTE | 2025-04-24 10:01 | PC.NURSE ---
Notified lab that we are waiting for vanco trough to be drawn, they are aware and phlebotomy is coming.
[2025-04-24 10:42] VITALS: BP 115/73; PULSE 79; RESP 15; TEMP 36.7; O2SAT 98
[2025-04-24] MEDS: VANCOMYCIN 1,500 MG/300 ML PIGGYBACK 200 MG IV ×2 (10:43→22:37)
[2025-04-24] MEDS: VANCOMYCIN TROUGH 1 REQUEST MISC (10:43)
[2025-04-24] MEDS: HYDROCODONE/ACET 5/325 TABLET 2 TAB PO ×3 (12:10→23:43)
--- NOTE | 2025-04-24 12:48 | PM.PN.1 ---
Subjective Subjective Interval history: Subjective: He was still having a lot of hand pain and swelling. The hand remains wrapped. Orthopedics will change the dressing today and reinspect. He was status post incision and drainage. Exam Vital Signs (past 8 hours): - 04/24/25 10:42 Temperature 98.0 F Pulse Rate 79 Respiratory Rate 15 Blood Pressure 115/73 Pulse Oximetry 98 Oxygen Flow Rate 0 Oxygen Delivery Method Room Air Oxygen Flow Rate 0 Narrative Exam Narrative: NAD, alert and oriented. Fluent speech. Lungs are clear, normal rate and effort. Heart is regular, no murmur gallop or rub. Abdomen is soft, non distended. Extremities are free of edema. The right wrist and hand are wrapped. There is some edema of all fingers, good cap refill. Objective Labs 04/23/25 08:26 04/23/25 08:26 Labs: Laboratory Results - last 24 hr 04/24/25 10:10 Vancomycin Trough 13.9 PFSH Medical History Chronic headaches Hyperlipidemia Asthma Sleep disorder Social History household members: significant other Smoking Status: Never smoker Assessment & Plan Assessment & Plan narrative: Cat bite abscess, present on admission. Active. Status post incision and drainage on April 23. Chronic headaches, present on admission. Stable. Resume topiramate PLAN: -continue IV antibiotics. -orthopedics will change her dressing today and see if anything else needs to happen. DVT prophylaxis SCDs and ambulation CODE STATUS full code. Time-Based Coding :: [TOTAL MINUTES] spent with patient and on the chart (including review of chart, obtaining history, exam, reviewing outside data, placing orders, documenting exam and treatment plan, and counseling patient) on [DATE]. Quality VTE Deep Vein Thrombosis/Pulmonary Embolism Present on Admission: No
--- NOTE | 2025-04-24 14:14 | CM.DANOTE ---
Patient is a 49 yo male who was admitted INPT Status on 04/22/25 for Cat Bite cellulitis. Pt has [facility] AD[facility] for insurance and currently no PCP on [address] [place]. EMR was reviewed. Per MD, Ortho Surgeon completed I&D with pt due to cellulitis on his right hand from cat bite and Ortho to do dressing change today to determine any further I&D needed. Cultures still pending to confirm which abx needed at d/c and anticipate po but r/o IV abx pending progress. SW met bedside with pt and his Sig Other and explained role and they confirm they live at home on [address] and are both active and independent at baseline and pt drives and does not use DME for ambulation. Pt is right hand dominant so having some challenges with his swollen and painful hand but confirms he has a little more range of motion and decreased swelling. Both pt and SO are somewhat unkempt but pt plans to have a shower today with nursing staff help. Pt denies any hx of HH or SNF and states he has had a few providers at the [facility] but currently [place] does not have an MD so patient is trying to determine waiting to see if provider is hired on [place] vs going to [facility] vs [facility]. Pt and Sig Other confirm their preference is to d/c back home and pt's vehicle is in the parking lot and pt is not employed at this time and states he is on disability (unknown reason/dx for disability) but was notified of jury duty next month in [place] and pending pt's needs at d/c might need not towards excuse from jury duty. Plan: SW to follow for Ortho rounding today to determine any further surgical intervention and confirm PO abx at d/c pending cultures and progress. JHOANA Steward Discharge Planning/Care Management CM Discharge Assessment Start: 04/22/25 22:15 Freq: Status: Active Protocol: Document 04/24/25 14:08 BF (Rec: 04/24/25 14:14 BF [id number]) Discharge Planning Assessment Assigned Discharge JHOANA Omer Leno Sewer DPOA/Assigned informally Sig Other Designee Name Advance Directives? No Advance Directives No on File History Provided By Patient,Significant Other,Medical Record Has Patient been No admitted in last 30 days? Prior Living House Arrangements Household Members significant other Type of Drives own vehicle transporation used prior to admit Independent with ADL Yes 's Is patient alert and Yes oriented? Caregiver for No Another Barriers to No Discharge Discharge Plan Home Transportation Has own vehicle in the parking lot, Sig Other bedside Arrangement Additional Comment Pending cultures to confirm PO abx at d/c Whiteboard Updated Yes in Patient Room with name and ext. # of Solar System Designer Review Status In Process Please Provide Date 04/24/25 Initial DC Assessment Was Performed Next Review Type Continued Stay Review Document 04/24/25 14:14 BF (Rec: 04/24/25 14:14 BF [id number]) Discharge Planning Assessment Assigned Discharge JHOANA Omer Leno Sewer DPOA/Assigned informally Sig Other Designee Name Advance Directives? No Advance Directives No on File History Provided By Patient,Significant Other,Medical Record Has Patient been No admitted in last 30 days? Prior Living House Arrangements Household Members significant other Type of Drives own vehicle transporation used prior to admit Independent with ADL Yes 's Is patient alert and Yes oriented? Caregiver for No Another Barriers to No Discharge Discharge Plan Home Transportation Has own vehicle in the parking lot, Sig Other bedside Arrangement Additional Comment Pending cultures to confirm PO abx at d/c Whiteboard Updated Yes in Patient Room with name and ext. # of Solar System Designer Review Status In Process Please Provide Date 04/24/25 Initial DC Assessment Was Performed Next Review Type Continued Stay Review
--- NOTE | 2025-04-24 16:13 | PM.PNPO.1 ---
Subjective Subjective Interval history: Jose is POD#1 s/p Incision and drainage of right dorsal hand infection from a jim bite by Dr. Carrera. Today he reports increased swelling and pain in his right hand. VSS. He is getting IV abx, vancomycin ceftriaxone and metronidazole. Denies fever, chills, chest pain, SOB, nausea, vomiting. Exam Vital Signs (past 8 hours): - 04/24/25 10:42 Temperature 98.0 F Pulse Rate 79 Respiratory Rate 15 Blood Pressure 115/73 Pulse Oximetry 98 Oxygen Flow Rate 0 Oxygen Delivery Method Room Air Oxygen Flow Rate 0 Narrative Exam Narrative: Right hand post-op dressing is intact, saturated w/serosanguineous drainage. He continues to have substantial soft tissue swelling of the digits. He has active extension and flexion of all digits. Decreased ROM of the thumb. Sensation is intact to light touch throughout the radial, ulnar, and median nerve distributions. Reports decreased sensation in the medial edge of the thumb. Brisk capillary refill of all digits. Objective Labs 04/23/25 08:26 04/23/25 08:26 Labs: Laboratory Results - last 24 hr 04/24/25 10:10 Vancomycin Trough 13.9 PFSH Medical History Chronic headaches Hyperlipidemia Asthma Sleep disorder Social History household members: significant other Smoking Status: Never smoker Assessment & Plan Post-op Assessment and plan (1) Cellulitis of hand, right: (2) Cat bite: Postoperative Procedures: Procedures Operation Date: 04/22/25 23:00 Actual Procedure Side Surgeon p Incision and Drainage Wound/Extremity Right Byron Carrera MD Postoperative day: 1 Postoperative status: doing well Postoperative status narrative: I changed the patients post-op dressing today and removed about 3 inches of his iodoform packing. He tolerated the procedure well although w/ a great deal of anxiety and some pain. 1) Discharge dispo per medicine. 2) Continue multimodal pain management with ice to the hand for additional pain control. 3) Continue IV Abx. Blood cultures no growth after 24 hours. When specimen from surgery aerobic cultures preliminary no growth. 4) Okay to work on gentle ROM of the fingers and hand. 5) Keep dressing intact, will perform daily dressing changes for now, plan to remove 2-4 inches of the packing each day until all of the packing has been removed. 6) Follow up at [facility] upon discharge for continued wound care. All patient's and his s/o questions were answered, they demonstrates understanding and are in agreement with the plan. Call our office if any questions or concerns arise. Time Spent With Patient Time with patient: 15-24 minutes Quality VTE Deep Vein Thrombosis/Pulmonary Embolism Present on Admission: No
[2025-04-24 19:00] VITALS: BP 118/80; PULSE 90; RESP 22; TEMP 36.8; O2SAT 98
[2025-04-24] MEDS: PRAVASTATIN 20 MG TABLET 10 MG PO (20:35)
[2025-04-24] MEDS: DOCUSATE 100 MG CAPSULE 200 MG PO (21:38)
[2025-04-24] MEDS: cefTRIAXone 2,000 MG in SODIUM CHLORIDE 0.9% 100 ML 200 MG IV (21:38)
[2025-04-25] MEDS: metroNIDAZOLE 500 MG/100 ML PIGGYBACK 100 MG IV ×4 (02:05→20:25)
[2025-04-25] MEDS: HYDROCODONE/ACET 5/325 TABLET 2 TAB PO ×4 (06:28→20:24)
[2025-04-25] MEDS: CYCLOBENZAPRINE 10 MG TABLET PO ×3 (08:32→20:23)
[2025-04-25] MEDS: DOCUSATE 100 MG CAPSULE 200 MG PO ×2 (08:32→20:23)
[2025-04-25] MEDS: FAMOTIDINE 20 MG TABLET PO ×2 (08:32→20:23)
[2025-04-25] MEDS: TOPIRAMATE 25 MG TABLET PO ×2 (08:32→20:23)
[2025-04-25] MEDS: ENOXAPARIN 40 MG/0.4 ML SYRINGE SUBCUT (08:32)
[2025-04-25] MEDS: VANCOMYCIN 1,500 MG/300 ML PIGGYBACK 200 MG IV ×2 (10:30→22:13)
[2025-04-25] MEDS: QUETIAPINE 25 MG TABLET 50 MG PO ×2 (10:58→20:23)
[2025-04-25] MEDS: AMITRIPTYLINE 25 MG TABLET 50 MG PO ×2 (10:58→20:23)
--- NOTE | 2025-04-25 12:50 | PM.PN.1 ---
Subjective Subjective Interval history: S: He was less hand pain today. No fevers overnight. He was still have a lot of swelling and some drainage from the wound. He was discussed with Orthopedics, they may re-explored tomorrow. Exam Vital Signs (past 8 hours): Oxygen Delivery Method Room Air Oxygen Flow Rate 0 Narrative Exam Narrative: NAD, alert and oriented. Fluent speech. Lungs are clear, normal rate and effort. Heart is regular, no murmur gallop or rub. Abdomen is soft, non distended. Extremities are free of edema. Right hand is still swollen, there was good ability to flex and extend the fingers. There is still some drainage coming from the closed wound. Objective Labs 04/23/25 08:26 04/23/25 08:26 [facility] Medical History Chronic headaches Hyperlipidemia Asthma Sleep disorder Social History household members: significant other Smoking Status: Never smoker Assessment & Plan Assessment & Plan narrative: 1. Cat bite abscess, present on admission. Active. Status post incision and drainage on April 23. 2. Chronic headaches, present on admission. Stable. Resume topiramate, amitriptyline, and Seroquel PLAN: -continue IV antibiotics. -discussed with ortho [id number], redressed today. NPO midnight for possible exploration on April 26. DVT prophylaxis SCDs and ambulation CODE STATUS full code. Time-Based Coding :: [TOTAL MINUTES] spent with patient and on the chart (including review of chart, obtaining history, exam, reviewing outside data, placing orders, documenting exam and treatment plan, and counseling patient) on [DATE]. Quality VTE Deep Vein Thrombosis/Pulmonary Embolism Present on Admission: No
--- NOTE | 2025-04-25 13:16 | PM.PN.IH.1 ---
Subjective Subjective Date Patient Seen: 04/25/25 Interval history: Patient alert laying semi-recumbent in bed accompanied by his partner Jennifer He denies chest pain, dyspnea, nausea, emesis, fevers and chills Overall he feels pain and swelling are improving since yesterday Exam Vital Signs (past 8 hours): Oxygen Delivery Method Room Air Oxygen Flow Rate 0 Narrative Exam Narrative: Well-developed, well-nourished, 49-year-old male, no acute distress Right hand has diffuse swelling without significant erythema. Approximately 6 cm longitudinal incision over the dorsum of right hand in line with 3rd digit with [address] and packing in place. Sanguinous than serous drainage without brady pus from wick. No erythema or tenderness about the flexor tendons of the hand. Minimal tenderness about the radial aspect of the incision, no tenderness about ulnar aspect of the incision Neurovascularly intact to the right upper extremity although he reports diminished sensation about the ulnar aspect of the right thumb since time of cat bite Gross finger flexion-extension intact Objective Labs 04/25/25 13:06 04/25/25 13:06 [facility] Medical History Chronic headaches Hyperlipidemia Asthma Sleep disorder Social History household members: significant other Smoking Status: Never smoker Assessment & Plan Assessment & Plan narrative: 49-year-old man is postoperative day 2 from incision and drainage of right hand cat bite to dorsum of hand by Dr. Carrera at [facility] on 04/22/2025. He continues on IV vancomycin, ceftriaxone and metronidazole. His pain and swelling are improving today which he attributes to the addition of his home amitriptyline and quetiapine. He is afebrile. WBC 5.6. ESR 19. CRP pending. No organisms seen on Gram stain from 04/22/2025. No growth on blood cultures. Today I removed the packing which was about 20 in in length. Patient tolerated procedure well. I then repacked the wound with about 12 in of iodoform dressing and redressed the wound with 4 x 4 gauze and a simple Sawyer wrap. There was serosanguinous drainage without pustular drainage. Dressing to remain in place unless saturated. Plan: - Dressing changes per orthopedics. Keep dressing dry and intact. Packing remains in place. - Continue multimodal pain management per primary team with ice to hand as needed - Medicine to transition to oral antibiotics from IV antibiotics in preparation for discharge when able - Encourage gentle range of motion to right hand fingers - Strict elevation of hand to reduce swelling - ESR, CRP, CBC ordered - Follow up with [facility] after discharge - Massimo boudreaux prepared - NPO at midnight in preparation for possible OR tomorrow. Orthopedics will see the patient in the morning. 35 minutes spent face to face with the patient and his partner discussing care plan and performing dressing changes. Time-Based Coding :: [TOTAL MINUTES] spent with patient and on the chart (including review of chart, obtaining history, exam, reviewing outside data, placing orders, documenting exam and treatment plan, and counseling patient) on [DATE]. Quality VTE Deep Vein Thrombosis/Pulmonary Embolism Present on Admission: No [facility] PROFEE Cloud Infrastructure Architect Document charge(s): Yes
[2025-04-25 13:23] LABS: Hematocrit 39.5 % (41-53); Hemoglobin 13.5 g/dL (13.5-17.5); Mean Corpuscular HGB Conc 34.2 % (30-36); Mean Corpuscular Hemoglobin 32.2 PG (26-34); Mean Corpuscular Volume 94.1 fL (80-100); Platelet Count 169 X10^3/uL (150-400)
[2025-04-25 13:34] LABS: Blood Urea Nitrogen 6 mg/dL (9-20); Calcium 8.1 mg/dL (8.4-10.2); Carbon Dioxide 22 mmol/L (22-32); Chloride 108 mmol/L (98-107); Estimated Glomerular Filt Rate > 60 mL/min (>60); Glucose 91 mg/dL (70-99); HEMOLYSIS < 15 (0-50); Potassium 4.1 mmol/L (3.4-5.1); Sodium 137 mmol/L (137-145)
[2025-04-25] MEDS: ONDANSETRON 4 MG/2 ML INJ IV ×2 (14:38→21:42)
[2025-04-25] MEDS: LACTOBACILLUS ACIDOPHILUS TABLET 1 EACH PO (16:08)
[2025-04-25] MEDS: METOCLOPRAMIDE 10 MG/2 ML INJ IV (16:08)
[2025-04-25 18:30] VITALS: BP 107/68; PULSE 95; RESP 18; TEMP 36.5; O2SAT 97
[2025-04-25 20:00] VITALS: BP 120/76; PULSE 90; RESP 17; TEMP 36.6; O2SAT 99
[2025-04-25] MEDS: PRAVASTATIN 20 MG TABLET 10 MG PO (20:23)
[2025-04-25] MEDS: cefTRIAXone 2,000 MG in SODIUM CHLORIDE 0.9% 100 ML 200 MG IV (21:35)
[2025-04-26] MEDS: metroNIDAZOLE 500 MG/100 ML PIGGYBACK 100 MG IV ×4 (01:43→19:54)
[2025-04-26 04:11] LABS: CRP, High Sensitivity 13.83 mg/L (0.00-3.00)
[2025-04-26 04:48] LABS: Add Manual Diff / Slide Review NO; Hematocrit 38.3 % (41-53); Hemoglobin 13.2 g/dL (13.5-17.5); Lymphocytes Absolute Auto 1200 /uL (1100-4500); Mean Corpuscular HGB Conc 34.4 % (30-36); Mean Corpuscular Hemoglobin 32.3 PG (26-34); Mean Corpuscular Volume 93.9 fL (80-100); Platelet Count 163 X10^3/uL (150-400)
[2025-04-26] MEDS: OXYCODONE/ACETAMINOPHEN 5/325 TABLET 1 TAB PO ×3 (07:41→20:58)
[2025-04-26] MEDS: LACTOBACILLUS ACIDOPHILUS TABLET 1 EACH PO ×3 (07:41→17:35)
[2025-04-26 08:00] VITALS: BP 111/83; PULSE 97; RESP 16; TEMP 36.9; O2SAT 95
[2025-04-26] MEDS: QUETIAPINE 25 MG TABLET 50 MG PO ×2 (09:10→20:56)
[2025-04-26] MEDS: FAMOTIDINE 20 MG TABLET PO ×2 (09:10→20:56)
[2025-04-26] MEDS: TOPIRAMATE 25 MG TABLET PO ×2 (09:10→20:56)
[2025-04-26] MEDS: AMITRIPTYLINE 25 MG TABLET 50 MG PO ×2 (09:11→20:55)
[2025-04-26] MEDS: CYCLOBENZAPRINE 10 MG TABLET PO ×3 (09:11→20:56)
[2025-04-26] MEDS: DOCUSATE 100 MG CAPSULE 200 MG PO ×2 (09:11→20:56)
[2025-04-26] MEDS: SENNOSIDES 8.6 MG TABLET PO (09:11)
[2025-04-26] MEDS: ENOXAPARIN 40 MG/0.4 ML SYRINGE SUBCUT (09:12)
[2025-04-26] MEDS: VANCOMYCIN 1,500 MG/300 ML PIGGYBACK 200 MG IV ×2 (10:53→21:43)
--- NOTE | 2025-04-26 11:01 | CM.DPC ---
DCP Cont. Reviewed EMR and team rounds for pt's medical status and updates. Per Hospitalist, pt will need 1-more day inpt before readiness for d/c. Monitoring closely for final needs.
--- NOTE | 2025-04-26 11:03 | PM.PN.1 ---
Subjective Subjective Interval history: Summary: He was admitted for a right hand cat bite. He has been on antibiotics and 1 I&D. Ortho remains concerned and wants him to be NPO at midnight. S: His hand feels a little better. No fevers. Vomiting with hydrocodone, switched to oxycodone. Exam Vital Signs (past 8 hours): - 04/26/25 08:00 Temperature 98.4 F Pulse Rate 97 H Respiratory Rate 16 Blood Pressure 111/83 Pulse Oximetry 95 Oxygen Delivery Method Room Air Oxygen Flow Rate 0 Narrative Exam Narrative: NAD, alert and oriented. Fluent speech. Lungs are clear, normal rate and effort. Heart is regular, no murmur gallop or rub. Abdomen is soft, non distended. Extremities are free of edema. Right hand is wrapped and improved. Can extend all fingers. Objective Labs 04/26/25 04:20 04/25/25 13:06 Labs: Laboratory Results - last 24 hr 04/25/25 04/26/25 13:06 04:20 WBC 5.6 5.3 RBC 4.20 L 4.08 L Hgb 13.5 13.2 L Hct 39.5 L 38.3 L MCV 94.1 93.9 MCH 32.2 32.3 MCHC 34.2 34.4 RDW 15.1 H 15.1 H Plt Count 169 163 Neut % (Auto) 65.9 Lymph % (Auto) 21.9 L [place] % (Auto) 8.8 Eos % (Auto) 3.0 Baso % (Auto) 0.4 Neut # (Auto) 3500 Lymph # (Auto) 1200 [place] # (Auto) 500 Eos # (Auto) 200 Baso # (Auto) 0 ESR 19 H Sodium 137 Potassium 4.1 Chloride 108 H Carbon Dioxide 22 BUN 6 L Creatinine 0.93 Estimated GFR > 60 BUN/Creatinine Ratio 6.5 Glucose 91 Calcium 8.1 L C-React Prot High Sens 13.83 H PFSH Medical History Chronic headaches Hyperlipidemia Asthma Sleep disorder Social History household members: significant other Smoking Status: Never smoker Assessment & Plan Assessment & Plan narrative: 1. Cat bite abscess, present on admission. Active. Status post incision and drainage on April 23. Continues to be active. 2. Chronic headaches, present on admission. Stable. Resume topiramate, amitriptyline, and Seroquel PLAN: -continue IV antibiotics. -discussed with ortho [id number], redressed today. NPO after midnight. Possible I&D tomorrow. CHRISTINA; unclear. DVT prophylaxis SCDs and ambulation Time-Based Coding :: [TOTAL MINUTES] spent with patient and on the chart (including review of chart, obtaining history, exam, reviewing outside data, placing orders, documenting exam and treatment plan, and counseling patient) on [DATE]. Quality VTE Deep Vein Thrombosis/Pulmonary Embolism Present on Admission: No
--- NOTE | 2025-04-26 11:38 | P.PN_ITS ---
Subjective Subjective Interval history: Patient reports continued pain requiring oral medications every 4 hours to manage right hand pain He denies systemic symptoms including fevers, chills, night sweats as well as chest pain and dyspnea. He has been having nausea and emesis He has been elevating the hand and the dressing remained dry without drainage overnight Again he is accompanied by his partner Jennifer Exam Vital Signs (past 8 hours): - 04/26/25 08:00 Temperature 98.4 F Pulse Rate 97 H Respiratory Rate 16 Blood Pressure 111/83 Pulse Oximetry 95 Oxygen Delivery Method Room Air Oxygen Flow Rate 0 Narrative Exam Narrative: Well-developed, well-nourished, 49-year-old male, no acute distress Right hand has increased swelling about the dorsum of the hand with no change in erythema about the 4th and 5th metacarpal heads about the dorsum of the hand. Approximately 6 cm longitudinal incision over the dorsum of right hand in line with 3rd digit with [address] and packing in place. Serosanguinous drainage without brady pus from wick. No erythema or tenderness about the flexor tendons of the hand at rest, with active movement or to palpation. Increased tenderness about the radial and ulnar aspects of the incision compared to yesterday Neurovascularly intact to the right upper extremity to light touch. Patient refuses almost all finger motion on exam Objective Labs 04/26/25 04:20 04/25/25 13:06 Labs: Laboratory Results - last 24 hr 04/25/25 04/26/25 13:06 04:20 WBC 5.6 5.3 RBC 4.20 L 4.08 L Hgb 13.5 13.2 L Hct 39.5 L 38.3 L MCV 94.1 93.9 MCH 32.2 32.3 MCHC 34.2 34.4 RDW 15.1 H 15.1 H Plt Count 169 163 Neut % (Auto) 65.9 Lymph % (Auto) 21.9 L [place] % (Auto) 8.8 Eos % (Auto) 3.0 Baso % (Auto) 0.4 Neut # (Auto) 3500 Lymph # (Auto) 1200 [place] # (Auto) 500 Eos # (Auto) 200 Baso # (Auto) 0 ESR 19 H Sodium 137 Potassium 4.1 Chloride 108 H Carbon Dioxide 22 BUN 6 L Creatinine 0.93 Estimated GFR > 60 BUN/Creatinine Ratio 6.5 Glucose 91 Calcium 8.1 L C-React Prot High Sens 13.83 H [facility] Medical History Chronic headaches Hyperlipidemia Asthma Sleep disorder Social History household members: significant other Smoking Status: Never smoker Assessment & Plan Assessment & Plan narrative: 49-year-old man is postoperative day 3 from incision and drainage of right hand cat bite to dorsum of hand by Dr. Carrera at [facility] on 04/22/2025. He continues on IV vancomycin, ceftriaxone and metronidazole. His pain and swelling continue today. His vital signs continue to be stable without systemic signs of infection. WBC is within the normal limits. ESR was elevated yesteday. CRP elevated yesterday (13.8), pending today. This patient was seen and evaluated by myself and Dr Quijano, Orthopedic surgeon today. Drainage is serosanguious without purulence. Today his packing was removed. The wound was not repacked. The wound was dressed with xeroform, 4x4 gauze, kt wrap and an leona wrap. He was placed in a damon sling for strict elevation. Plan: - Dressing changes per orthopedics. Keep dressing dry and intact. - Continue multimodal pain management per primary team with ice to hand as needed - Medicine to transition to oral antibiotics from IV antibiotics in preparation for discharge when able - Encourage gentle range of motion to right hand fingers - Strict elevation of hand to reduce swelling with Damon sling - Trending CRP and CBC - Follow up with [facility] after discharge - [place] pass provided to patient's partner today - NPO at midnight in preparation for possible OR for I&D tomorrow 25 minutes were spent face to face caring for this patient today including wound care and dressing changes as well as patient counseling. Time-Based Coding :: [TOTAL MINUTES] spent with patient and on the chart (including review of chart, obtaining history, exam, reviewing outside data, placing orders, documenting exam and treatment plan, and counseling patient) on [DATE]. Quality VTE Deep Vein Thrombosis/Pulmonary Embolism Present on Admission: No IH PROFEE Provider Contracting Consultant Document charge(s): Yes
[2025-04-26] MEDS: METOCLOPRAMIDE 10 MG/2 ML INJ IV (18:43)
[2025-04-26 19:00] VITALS: BP 120/76; PULSE 89; RESP 17; TEMP 36.7; O2SAT 99
[2025-04-26] MEDS: SODIUM CHLORIDE 0.9% FLUSH 10 ML IV (19:55)
[2025-04-26] MEDS: SODIUM CHLORIDE 0.9% 250 ML 21 ML IV (19:57)
[2025-04-26] MEDS: PRAVASTATIN 20 MG TABLET 10 MG PO (20:56)
[2025-04-26] MEDS: cefTRIAXone 2,000 MG in SODIUM CHLORIDE 0.9% 100 ML 200 MG IV (21:00)
--- NOTE | 2025-04-26 23:05 | PC.NURSE ---
Patient is alert and oriented. Breath sounds CTA with RA sat of 99%. HRR. Has had intermittent nausea but denied any nausea at time of assessment. BT hypoactive and has not had a BM since 04/21 but is passing flatus; did receive Miralax, Senna and Colace today. Is voiding without dysuria, frequency or urgency. Has been independent with mobility so is declining use of SCD's; reminded to ankle wave when awake. Endorses some numbness in right thumb extending to palm and index finger but is able to wiggle all fingers, has sensation in all fingers and good capillary refill. Dressing to right hand is CDI and patient is keeping arm elevated. Did complain of 6/10 achy type pain in right hand earlier and was medicated with Percocet with good results and is currently asleep. Fall risk score is moderate but no need for bed alarm at present time as is steady on feet. Significant other is rooming in.
[2025-04-27] MEDS: metroNIDAZOLE 500 MG/100 ML PIGGYBACK 100 MG IV ×4 (01:50→19:55)
[2025-04-27] MEDS: SODIUM CHLORIDE 0.9% FLUSH 10 ML IV ×2 (01:51→20:11)
[2025-04-27] MEDS: OXYCODONE/ACETAMINOPHEN 5/325 TABLET 1 TAB PO ×3 (04:03→18:36)
[2025-04-27 04:11] LABS: CRP, High Sensitivity 12.74 mg/L (0.00-3.00)
[2025-04-27 05:50] LABS: Add Manual Diff / Slide Review NO; Hematocrit 39.7 % (41-53); Hemoglobin 13.2 g/dL (13.5-17.5); Lymphocytes Absolute Auto 1000 /uL (1100-4500); Mean Corpuscular HGB Conc 33.4 % (30-36); Mean Corpuscular Hemoglobin 31.5 PG (26-34); Mean Corpuscular Volume 94.4 fL (80-100); Platelet Count 172 X10^3/uL (150-400)
[2025-04-27] MEDS: LACTOBACILLUS ACIDOPHILUS TABLET 1 EACH PO ×3 (08:13→17:00)
[2025-04-27] MEDS: ENOXAPARIN 40 MG/0.4 ML SYRINGE SUBCUT (08:14)
[2025-04-27] MEDS: TOPIRAMATE 25 MG TABLET PO ×2 (08:14→20:08)
[2025-04-27] MEDS: QUETIAPINE 25 MG TABLET 50 MG PO ×2 (08:14→20:08)
[2025-04-27] MEDS: DOCUSATE 100 MG CAPSULE 200 MG PO ×2 (08:14→20:08)
[2025-04-27] MEDS: FAMOTIDINE 20 MG TABLET PO ×2 (08:14→20:08)
[2025-04-27] MEDS: AMITRIPTYLINE 25 MG TABLET 50 MG PO ×2 (08:14→20:08)
[2025-04-27] MEDS: CYCLOBENZAPRINE 10 MG TABLET PO ×3 (08:14→20:08)
[2025-04-27] MEDS: VANCOMYCIN 1,500 MG/300 ML PIGGYBACK 200 MG IV ×2 (10:11→22:15)
--- NOTE | 2025-04-27 10:35 | P.PN_ITS ---
Subjective Subjective Interval history: PATIENT SUMMARY Po Bush is in the hospital recovering from an incision and debridement of a right hand abscess due to a cat bite. The primary reason for today's encounter is postoperative management and evaluation of recovery progress. PAST SURGICAL HISTORY - Incision and debridement of right hand abscess performed by Dr. Carrera at the hospital on April 22, 2025, involving the interosseous space between the second and third metacarpals. No complications were noted during the procedure. SUBJECTIVE The patient reports that pain in the right hand is getting better. He mentioned that he has managed to retain a lot of range of movement between yesterday and today. PHYSICAL EXAM Constitutional: Alert and oriented, engaged in conversation. Musculoskeletal: The right hand shows no purulent fluid. The patient is unable to make a full fist but has no pain with active flexion or extension of the wrist. He has some paresthesias in the radial sensory nerve distribution but intact sensation in the median ulnar and radial nerves as well as full motor function. The lacerations from the puncture wounds from the cat's mouth are located over the dorsum of the thumb and are hemostatic with no drainage or erythema. The hand is diffusely swollen but has no induration or erythema. There is slight serous drainage from the central aspect of the wound which remains open but the proximal and distal portions are closed with nylons. LABS: CRP downtrending over last 48 hours. No preoperative lab value for comparison. Today's CRP is pending. ASSESSMENT - Right hand abscess, status post incision and debridement with improvement PLAN - Continue IV antibiotics (vancomycin, ceftriaxone, and metronidazole). - Start warm soapy soaks using chlorhexidine three times a day for 20 minutes each session. - Monitor CRP and other inflammatory markers; results from today's labs are pending. - Resume normal diet, no surgical plans today - Followup with al Thursday - Empiric outpatient oral antibiotics Exam Vital Signs (past 8 hours): Oxygen Delivery Method Room Air Oxygen Flow Rate 0 Objective Labs 04/27/25 05:40 04/25/25 13:06 Labs: Laboratory Results - last 24 hr 04/26/25 04/27/25 04:20 05:40 WBC 4.4 L RBC 4.20 L Hgb 13.2 L Hct 39.7 L MCV 94.4 MCH 31.5 MCHC 33.4 RDW 14.7 Plt Count 172 Neut % (Auto) 60.6 Lymph % (Auto) 23.6 L [place] % (Auto) 9.9 Eos % (Auto) 5.6 H Baso % (Auto) 0.3 Neut # (Auto) 2700 Lymph # (Auto) 1000 L [place] # (Auto) 400 Eos # (Auto) 200 Baso # (Auto) 0 C-React Prot High Sens 12.74 H PFSH Medical History Chronic headaches Hyperlipidemia Asthma Sleep disorder Social History household members: significant other Smoking Status: Never smoker Assessment & Plan Post-op Postoperative Procedures: Procedures Operation Date: 04/22/25 23:00 Actual Procedure Side Surgeon p Incision and Drainage Wound/Extremity Right Byron Carrera MD Quality VTE Deep Vein Thrombosis/Pulmonary Embolism Present on Admission: No
--- NOTE | 2025-04-27 10:35 | CM.DPC ---
DCP Cont. Reviewed EMR and team rounds for pt's medical status and updates. Per Hosptalist, pt is being taken back to the OR today for another I&D. Monitoring for final d/c needs.
--- NOTE | 2025-04-27 11:02 | DIET.CONS ---
Dietary Consultation Note Admission Date: 04/22/2025 22:08 Assessment: 49 y M admitted for cat bite. Dietitian screened for LOS. EMR reviewed, 75-100% po intakes, DFM reviewed for meal composition, adequate in nutrition. Normal MNA score. Ht: 180.34 cm Wt: 92.76 kg BMI: 28.5 Last BM: 04/21/25 (04/23/25 01:05) MNA: 14 [place]vin Score: 21 Diet: 04/27/25 Lunch General (Regular) Diet Diet Modifications: Food Texture: Level 7 - Regular Liquid Consistency: Level 0 - Thin Nutrition Percent Meal Consumed 75% 04/26/25 17:58 Percent Meal Consumed 100% 04/26/25 08:00 Labs: RBC 4.20 X10^6/uL (4.5-5.9) L 04/27/25 05:40 Hgb 13.2 g/dL (13.5-17.5) L 04/27/25 05:40 Hct 39.7 % (41-53) L 04/27/25 05:40 Creatinine 0.93 mg/dL (0.66-1.25) 04/25/25 13:06 Lactate 1.4 mmol/L (0.7-2.1) 04/22/25 17:30 Nutrition Diagnosis: none at this time Monitoring/Evaluations: f/u 5 days, continuing to monitor PO intakes Electronically Signed by: Kirstin Jaramillo 04/27/25 11:02 Clinical Dietitian [address] [id number]
[2025-04-27 11:16] LABS: Estimated Glomerular Filt Rate > 60 mL/min (>60)
--- NOTE | 2025-04-27 14:50 | PC.NURSE ---
Day shift: Pt's hand is soaking at this time per Dr Gill note and Tasha MCGARRY verbal communication this AM. This newspaper writer put in a communication for the soaking this afternoon. Pt is tolerating the soak well.
--- NOTE | 2025-04-27 16:08 | P.PN_ITS ---
Subjective Subjective Date Patient Seen: 04/27/25 Interval history: Chief complaint: Cat bite with cellulitis pain and abscess status post incision and drainage History of present illness: 04/22: 49-year-old male with no reported past medical history presents with right hand dominant cat bite. Of note the patient presented to our ER with a cat bite to his right hand. The patient states that this is his actual cat who bit him. The patient noticed increasing pain and drainage to the site. There is also significant swelling. The patient otherwise denies any fever, chills, nausea, vomiting, diarrhea, chest pain or shortness of breath. In our emergency room, the patient was hemodynamically stable without sign of sepsis. All labs were relatively benign. CT scan of the right hand shows soft tissues swelling diffusely over the dorsum of the hand with diffuse gas present in the dorsal soft tissues. Orthopedic surgeon was consulted immediately and recommended that we admit the patient for IV antibiotic and will take the patient to the OR immediately. The patient was given IV vancomycin IV ceftriaxone and IV Flagyl. The patient was taken straight from our ER to the the OR by orthopedic surgeon. Hospital course: 04/23-04/27: Patient underwent surgical debridement and drainage in the operating room and placed on intravenous vancomycin intravenous ceftriaxone and metronidazole with daily clinical improvement 04/27: Improved pain and swelling redness no fevers or chills today continue with the IV antibiotics as outlined by Orthopedic surgery Review of systems: No fever or chills No shortness a breath No nausea vomiting Physical exam: Dorsum of the hand is swollen but minimally erythematous incision appears clean Patient is alert and oriented no labored respirations Assessment and plan Cat bite with abscess at the dorsum of the hand status post incision and debridement surgical culture is no growth * Continue IV antibiotics vancomycin ceftriaxone Flagyl for another 24 hours * Consider deescalating to Augmentin and consider adding clindamycin DVT prophylaxis: * Not indicate Code status: * Full code 35 minutes were spent in the evaluation of this patient decision making review of laboratory findings Exam Vital Signs (past 8 hours): Oxygen Delivery Method Room Air Oxygen Flow Rate 0 Objective Labs 04/27/25 05:40 04/27/25 10:58 Labs: Laboratory Results - last 24 hr 04/26/25 04/27/25 04/27/25 04:20 05:40 10:58 WBC 4.4 L RBC 4.20 L Hgb 13.2 L Hct 39.7 L MCV 94.4 MCH 31.5 MCHC 33.4 RDW 14.7 Plt Count 172 Neut % (Auto) 60.6 Lymph % (Auto) 23.6 L [place] % (Auto) 9.9 Eos % (Auto) 5.6 H Baso % (Auto) 0.3 Neut # (Auto) 2700 Lymph # (Auto) 1000 L [place] # (Auto) 400 Eos # (Auto) 200 Baso # (Auto) 0 Creatinine 0.78 Estimated GFR > 60 C-React Prot High Sens 12.74 H [facility] Medical History Chronic headaches Hyperlipidemia Asthma Sleep disorder Social History household members: significant other Smoking Status: Never smoker Assessment & Plan Time-Based Coding :: [TOTAL MINUTES] spent with patient and on the chart (including review of chart, obtaining history, exam, reviewing outside data, placing orders, documenting exam and treatment plan, and counseling patient) on [DATE]. Quality VTE Deep Vein Thrombosis/Pulmonary Embolism Present on Admission: No
[2025-04-27 19:00] VITALS: BP 113/84; PULSE 84; RESP 16; TEMP 36.6; O2SAT 99
[2025-04-27] MEDS: SODIUM CHLORIDE 0.9% 250 ML 21 ML IV (19:55)
[2025-04-27] MEDS: PRAVASTATIN 20 MG TABLET 10 MG PO (20:08)
[2025-04-27] MEDS: METOCLOPRAMIDE 10 MG/2 ML INJ IV (20:16)
[2025-04-27] MEDS: cefTRIAXone 2,000 MG in SODIUM CHLORIDE 0.9% 100 ML 200 MG IV (21:09)
[2025-04-28] MEDS: metroNIDAZOLE 500 MG/100 ML PIGGYBACK 100 MG IV ×4 (01:58→20:10)
[2025-04-28 04:11] LABS: CRP, High Sensitivity 15.23 mg/L (0.00-3.00)
[2025-04-28] MEDS: OXYCODONE/ACETAMINOPHEN 5/325 TABLET 1 TAB PO (06:48)
[2025-04-28] MEDS: SENNOSIDES 8.6 MG TABLET PO (06:49)
[2025-04-28 07:59] VITALS: BP 118/85; PULSE 82; RESP 16; TEMP 36.6; O2SAT 100
[2025-04-28] MEDS: LACTOBACILLUS ACIDOPHILUS TABLET 1 EACH PO ×3 (08:21→16:55)
[2025-04-28] MEDS: ENOXAPARIN 40 MG/0.4 ML SYRINGE SUBCUT (08:21)
[2025-04-28] MEDS: DOCUSATE 100 MG CAPSULE 200 MG PO ×2 (08:21→21:17)
[2025-04-28] MEDS: AMITRIPTYLINE 25 MG TABLET 50 MG PO ×2 (08:22→21:17)
[2025-04-28] MEDS: TOPIRAMATE 25 MG TABLET PO ×2 (08:22→21:18)
[2025-04-28] MEDS: CYCLOBENZAPRINE 10 MG TABLET PO ×3 (08:22→21:16)
[2025-04-28] MEDS: FAMOTIDINE 20 MG TABLET PO ×2 (08:22→21:17)
[2025-04-28] MEDS: QUETIAPINE 25 MG TABLET 50 MG PO ×2 (08:22→21:16)
[2025-04-28] MEDS: SODIUM CHLORIDE 0.9% FLUSH 10 ML IV ×2 (08:25→21:18)
--- NOTE | 2025-04-28 10:51 | PM.PNPO.1 ---
Subjective Subjective Interval history: Jose is POD#5 s/p Incision and drainage of right dorsal hand infection from a jim bite by Dr. Carrera. Today he reports he is doing well overall, he states his pain has decreased greatly and he feels his ROM is finally starting to return. VSS. He is still getting IV abx. Have been monitoring his labs, CRP increased yesterday but todays results are still pending. Denies fever, chills, chest pain, SOB, nausea, vomiting. Exam Vital Signs (past 8 hours): - 04/28/25 07:00 04/28/25 07:59 Temperature 97.8 F Pulse Rate 82 Respiratory Rate 16 Blood Pressure 118/85 Pulse Oximetry 100 Oxygen Delivery Method Room Air Oxygen Flow Rate 0 Oxygen Delivery Method Room Air Oxygen Flow Rate 0 Narrative Exam Narrative: Sitting up in bed comfortably, no acute distress. Right hand dressing intact, very mild serous drainage on the gauze overlying his incision site. Nylon sutures still intact. NO active drainage from the incision, no purulent drainage on the dressing. Mild diffuse swelling throughout the R hand, no significant erythema. The patient reports tenderness to palpation along the thenar eminence and around the incision site. Able to demonstrate mild flexion and extension of all fingers, limited ROM d/t pain and swelling. Sensation is intact to light touch throughout the radial, ulnar, and median nerve distributions. Reports decreased sensation in the medial edge of the thumb. Brisk capillary refill of all digits. Objective Labs 04/28/25 10:53 04/27/25 10:58 Labs: Laboratory Results - last 24 hr 04/27/25 04/27/25 05:40 10:58 Creatinine 0.78 Estimated GFR > 60 C-React Prot High Sens 15.23 H [facility] Medical History Chronic headaches Hyperlipidemia Asthma Sleep disorder Social History household members: significant other Assessment & Plan Post-op Postoperative Procedures: Procedures Operation Date: 04/22/25 23:00 Actual Procedure Side Surgeon p Incision and Drainage Wound/Extremity Right Byron Carrera MD Postoperative status narrative: ASSESSMENT - Right hand abscess, status post incision and debridement with improvement PLAN - Discharge disposition per medicine team - Continue IV antibiotics (vancomycin, ceftriaxone, and metronidazole). Transition to empiric outpatient oral antibiotics upon d/c. - Multimodal pain control as needed. - Warm soapy soaks using chlorhexidine three times a day for 20 minutes each session. - Will continue to monitor CRP and other inflammatory markers; results from today's labs are pending. - Followup in orthopedic clinic on Thursday w/ Dr. Gill. Postoperative plan: routine post-op care Time Spent With Patient Time with patient: less than 15 minutes Quality VTE Deep Vein Thrombosis/Pulmonary Embolism Present on Admission: No
[2025-04-28 11:13] LABS: Add Manual Diff / Slide Review NO; Hematocrit 40.0 % (41-53); Hemoglobin 13.8 g/dL (13.5-17.5); Lymphocytes Absolute Auto 1200 /uL (1100-4500); Mean Corpuscular HGB Conc 34.6 % (30-36); Mean Corpuscular Hemoglobin 32.4 PG (26-34); Mean Corpuscular Volume 93.8 fL (80-100); Platelet Count 186 X10^3/uL (150-400)
[2025-04-28] MEDS: VANCOMYCIN 1,500 MG/300 ML PIGGYBACK 200 MG IV ×2 (11:14→22:45)
--- NOTE | 2025-04-28 11:25 | CM.DPNOTE ---
DCP Continued: Reviewed EMR and team rounds for pt?s medical status. Per Ortho consult, no surgery needed at this time and anticipating dc with PO abx and follow up in clinic on Thursday, 05/02. Per hospitalist, plan is for continued IV abx until can move to PO in 24-48 hours. No discharge needs identified at this time, pt's vehicle is in the parking lot and can transport self home. Plan: Anticipating dc home on PO abx on 05/01 or when medically cleared. CM Team will continue to follow for coordination of discharge plans. SHAWNA Nick
[2025-04-28] MEDS: ONDANSETRON 4 MG/2 ML INJ IV (18:32)
--- NOTE | 2025-04-28 18:34 | P.PN_ITS ---
Subjective Subjective Date Patient Seen: 04/28/25 Interval history: Chief complaint: Cat bite with cellulitis pain and abscess status post incision and drainage History of present illness: 04/22:49-year-old male with no reported past medical history presents with right hand dominant cat bite. Of note the patient presented to our ER with a cat bite to his right hand. The patient states that this is his actual cat who bit him. The patient noticed increasing pain and drainage to the site. There is also significant swelling. The patient otherwise denies any fever, chills, nausea, vomiting, diarrhea, chest pain or shortness of breath. In our emergency room, the patient was hemodynamically stable without sign of sepsis. All labs were relatively benign. CT scan of the right hand shows soft tissues swelling diffusely over the dorsum of the hand with diffuse gas present in the dorsal soft tissues. Orthopedic surgeon was consulted immediately and recommended that we admit the patient for IV antibiotic and will take the patient to the OR immediately. The patient was given IV vancomycin IV ceftriaxone and IV Flagyl. The patient was taken straight from our ER to the the OR by orthopedic surgeon. Hospital course: 04/23-04/27: Patient underwent surgical debridement and drainage in the operating room and placed on intravenous vancomycin intravenous ceftriaxone and metronidazole with daily clinical improvement 04/27: Improved pain and swelling redness no fevers or chills today continue with the IV antibiotics as outlined by Orthopedic surgery 04/28: Started vomiting this afternoon preceded by feeling hot Review of systems: No fever or chills No shortness a breath No nausea vomiting Physical exam: Dorsum of the hand is less swollen incision appears clean Patient is alert and oriented no labored respirations Assessment and plan Cat bite with abscess at the dorsum of the hand status post incision and debridement surgical culture is no growth * Continue IV antibiotics vancomycin ceftriaxone Flagyl for another 24 hours * Consider deescalating to Augmentin and consider adding clindamycin on Monday 04/30 DVT prophylaxis: * Not indicate Code status: * Full code 35 minutes were spent in the evaluation of this patient decision making review of laboratory findings Exam Vital Signs (past 8 hours): Oxygen Delivery Method Room Air Oxygen Flow Rate 0 Objective Labs 04/28/25 10:53 04/27/25 10:58 Labs: Laboratory Results - last 24 hr 04/27/25 04/28/25 04/28/25 05:40 09:30 10:53 WBC 4.6 RBC 4.26 L Hgb 13.8 Hct 40.0 L MCV 93.8 MCH 32.4 MCHC 34.6 RDW 14.6 Plt Count 186 Neut % (Auto) 55.5 Lymph % (Auto) 26.8 [place] % (Auto) 10.7 Eos % (Auto) 6.4 H Baso % (Auto) 0.6 Neut # (Auto) 2600 Lymph # (Auto) 1200 [place] # (Auto) 500 Eos # (Auto) 300 Baso # (Auto) 0 C-React Prot High Sens 15.23 H Vancomycin Trough 13.4 PFSH Medical History Chronic headaches Hyperlipidemia Asthma Sleep disorder Social History household members: significant other Smoking Status: Never smoker Assessment & Plan Time-Based Coding :: [TOTAL MINUTES] spent with patient and on the chart (including review of chart, obtaining history, exam, reviewing outside data, placing orders, documenting exam and treatment plan, and counseling patient) on [DATE]. Quality VTE Deep Vein Thrombosis/Pulmonary Embolism Present on Admission: No
[2025-04-28 19:44] VITALS: BP 110/84; PULSE 84; RESP 16; TEMP 36.9; O2SAT 98
[2025-04-28] MEDS: cefTRIAXone 2,000 MG in SODIUM CHLORIDE 0.9% 100 ML 200 MG IV (21:00)
[2025-04-28] MEDS: PRAVASTATIN 20 MG TABLET 10 MG PO (22:07)
[2025-04-29] MEDS: metroNIDAZOLE 500 MG/100 ML PIGGYBACK 100 MG IV ×2 (01:37→08:34)
[2025-04-29 08:00] VITALS: BP 121/64; PULSE 77; RESP 16; TEMP 36.4; O2SAT 97
[2025-04-29] MEDS: ENOXAPARIN 40 MG/0.4 ML SYRINGE SUBCUT (08:34)
[2025-04-29] MEDS: TOPIRAMATE 25 MG TABLET PO (08:35)
[2025-04-29] MEDS: QUETIAPINE 25 MG TABLET 50 MG PO (08:35)
[2025-04-29] MEDS: FAMOTIDINE 20 MG TABLET PO (08:35)
[2025-04-29] MEDS: LACTOBACILLUS ACIDOPHILUS TABLET 1 EACH PO ×2 (08:35→11:22)
[2025-04-29] MEDS: AMITRIPTYLINE 25 MG TABLET 50 MG PO (08:35)
[2025-04-29] MEDS: DOCUSATE 100 MG CAPSULE 200 MG PO (08:35)
[2025-04-29] MEDS: CYCLOBENZAPRINE 10 MG TABLET PO (08:35)
[2025-04-29] MEDS: SODIUM CHLORIDE 0.9% FLUSH 10 ML IV ×2 (09:50→12:56)
--- NOTE | 2025-04-29 10:10 | P.PN_ITS ---
Exam Vital Signs (past 8 hours): - 04/29/25 08:00 Temperature 97.5 F L Pulse Rate 77 Respiratory Rate 16 Blood Pressure 121/64 Pulse Oximetry 97 Oxygen Flow Rate 0 Oxygen Delivery Method Room Air Oxygen Flow Rate 0 Objective Labs 04/28/25 10:53 04/27/25 10:58 Labs: Laboratory Results - last 24 hr 04/28/25 04/28/25 09:30 10:53 WBC 4.6 RBC 4.26 L Hgb 13.8 Hct 40.0 L MCV 93.8 MCH 32.4 MCHC 34.6 RDW 14.6 Plt Count 186 Neut % (Auto) 55.5 Lymph % (Auto) 26.8 [place] % (Auto) 10.7 Eos % (Auto) 6.4 H Baso % (Auto) 0.6 Neut # (Auto) 2600 Lymph # (Auto) 1200 [place] # (Auto) 500 Eos # (Auto) 300 Baso # (Auto) 0 Vancomycin Trough 13.4 PFSH Medical History Chronic headaches Hyperlipidemia Asthma Sleep disorder Social History household members: significant other Smoking Status: Never smoker Assessment & Plan Post-op Postoperative Procedures: Procedures Operation Date: 04/22/25 23:00 Actual Procedure Side Surgeon p Incision and Drainage Wound/Extremity Right Byron Carrera MD Postoperative status narrative: ID: [id number] yo M s/p right hand I and D on April 22, 2025 S: Report that his swelling, redness and pain have all improved. Denies F/C/NS/CP/SOB. Tolerating PO. Continues to do soaks. O: Much improved swelling and erythema about the incision site. There is still mild hyperemia about the various puncture wounds. No drainage. SILT in R/U/M nerve distributions Fires AIN/PIN/U motor groups Cap refill less than 2 seconds. No growth to date. A/P: 50 yo M s/p right hand I and D on April 22, 2025. Significant improvement from the last time I had seen him. At this point he is cleared to discharge from an orthopedic standpoint. I would recommend transitioning him to oral antibiotics at this time. Continue hand soaks. ?Admitted to Hospitalist (Appreciate assistance with this patient) ?minimal weight-bearing ?Multimodal Pain Control ?DISPO: Plan for discharge to home. Continue oral antibiotics. Scheduled to see Orthopedics on May 02, [address] Gill. However if he discharges next Thursday we will change his appointment to later for wound check. Jcarlos Quiajno MD Orthopedics [phone] cell Time Spent With Patient Time with patient: less than 15 minutes Quality VTE Deep Vein Thrombosis/Pulmonary Embolism Present on Admission: No
[2025-04-29] MEDS: SENNOSIDES 8.6 MG TABLET PO (11:22)
[2025-04-29] MEDS: VANCOMYCIN 1,500 MG/300 ML PIGGYBACK 200 MG IV (11:22)
--- NOTE | 2025-04-29 15:16 | CM.MNRNOTE ---
Pt independent in room, Right hand CDI w/incision looking well Some swelling noted. MD in to see, Orders for D/C placed. SL intact. Home instructions given along w/ RX for amoxicillin and Oxycocdone Pt Escorted ambulatory w/ staff to waiting vehicle. D/C in stable status.
--- NOTE | 2025-04-29 15:18 | CM.DPC ---
DCP Discharge Home Per MD, pt is medically stable to d/c home with PO meds and ongoing hand soaks and outpt f/u and no identified barriers to discharge. Pt with vehicle in parking lot and plans to transport himself home with Sig Other and outpt f/u on [place]. JHOANA Steward
--- NOTE | 2025-04-29 15:44 | PM.DS.1 ---
History of Present Illness History of Present Illness Chief complaint: animal bite-cat, Rt hand Narrative: Per H&P: 50-year-old male with no reported past medical history presents with right hand dominant cat bite. Of note the patient presented to our ER with a cat bite to his right hand. The patient states that this is his actual cat who bit him. The patient noticed increasing pain and drainage to the site. There is also significant swelling. The patient otherwise denies any fever, chills, nausea, vomiting, diarrhea, chest pain or shortness of breath. In our emergency room, the patient was hemodynamically stable without sign of sepsis. All labs were relatively benign. CT scan of the right hand shows soft tissues swelling diffusely over the dorsum of the hand with diffuse gas present in the dorsal soft tissues. Orthopedic surgeon was consulted immediately and recommended that we admit the patient for IV antibiotic and will take the patient to the OR immediately. The patient was given IV vancomycin IV ceftriaxone and IV Flagyl. The patient was taken straight from our ER to the the OR by orthopedic surgeon. Discharge Providers Provider Date of admission: 04/22/25 22:08 Discharge Date: 04/29/25 Consults: 04/24/25 16:12 Consult to Orthopedic Surgery Routine Comment: Consulting Provider: [facility] Reason for consultation: dressing change/wound check Has provider been notified: Yes Discharge provider: Tenisha Centeno MD Summary Hospital Course Discharge Diagnosis: 1. Infected cat bite to the dorsal right hand status post incision and drainage/debridement 2. Chronic headaches 3. Hyperlipidemia 4. Asthma Hospital Course: Patient was admitted with a significant cellulitis of the dorsal right hand related to cat bite from his own cat. At the time of admission CT revealed gas in the soft tissues. He was taken to the operating room for incision and drainage. Operative cultures remain negative for the duration of his hospitalization. He was placed on broad-spectrum IV antibiotics with ceftriaxone, vancomycin, and metronidazole. There was some initial concern he may need to return to the operating room on April 26. However, by April 27, the wound began improving. On April 28, plan had been to transition to oral antibiotics, but he did develop nausea and vomiting in the afternoon. He remained on IV antibiotics related to that. His nausea and vomiting resolve once he had a bowel movement and by April 29, he was feeling much improved. The wound continued to improved he was cleared for discharge by Orthopedic surgery. Plan is for follow-up with Orthopedic surgery May [address] Gill. He did have some ambivalence about the idea of discharging home. I did offer him the option to remain inpatient for an additional day. However after he discussed it further with his significant other, he elected to discharge home to [place] as he knew he had close follow-up with Orthopedic surgery within 72 hours. Patient is discharged in stable condition. Status at Discharge Cognitive/behavioral status at discharge: at baseline, oriented Functional status at discharge: independent ambulation Overall status at discharge: patient is progressing back to baseline Exam Vital Signs (past 8 hours): - 04/29/25 08:00 Temperature 97.5 F L Pulse Rate 77 Respiratory Rate 16 Blood Pressure 121/64 Pulse Oximetry 97 Oxygen Flow Rate 0 Oxygen Delivery Method Room Air Oxygen Flow Rate 0 Narrative Exam Narrative: GEN: Alert and oriented x 3, NAD HEENT:NC, Face symmetric CHEST: Respiratory excursions symmetric, CTAB CV: RRR, no M/R/G ABD: Soft, NT/ND, BT present in all 4 quadrants, no organomegaly or masses EXTR: warm, well perfused, no C/C/E, left hand has moderate swelling, moderate warmth, no erythema incision is clean/dry/intact and sutures are intact SKIN: warm and dry, no rash NEURO: Alert and oriented x 3, nonfocal Objective Labs 04/28/25 10:53 04/27/25 10:58 [facility] Medical History Chronic headaches Hyperlipidemia Asthma Sleep disorder Social History household members: significant other Smoking Status: Never smoker Discharge Plan Discharge Plan Patient Disposition: Home Provider Discharge Comment: You were admitted w/an infected cat bite. You will need to follow-up with orthopedic surgery on Thursday for a recheck. If you are not contacted by them by noon on Thursday, please call them directly to determine when your appointment time is. Continue to elevate your hand above the level of your heart as much as possible. Continue Hibiclens soaks 2 to 3 times a day as tolerated. If you can not tolerate the soaks, use the Hibiclens to cleanse your wound 2-3 times daily. Keep the wound clean and dry. Returned the ED: Fevers/chills Increased redness, swelling, or drainage from the wound Inability to hold down food, fluids, or medications Discharge orders & Medications Prescriptions: New oxycodone-acetaminophen 5-325 mg Tablet 1 tab PO Q4HR PRN (Reason: Pain, Moderate (4-6)) Qty: 10 0RF amoxicillin-pot clavulanate 875-125 mg tablet 1 tab PO BID Qty: 14 0RF Continued amitriptyline 50 mg tablet 50 mg PO DAILY quetiapine 25 mg tablet 25 mg PO DAILY cyclobenzaprine 10 mg tablet 10 mg PO 3XD topiramate 25 mg tablet 25 mg PO BID famotidine 20 mg tablet 20 mg PO BID pravastatin 10 mg tablet 10 mg PO ONCE PM albuterol sulfate 90 mcg/actuation HFA aerosol inhaler 1 puff inhalation DIRECTED PRN (Reason: Asthma) Discharge Health Status Multidrug resistant organism: No MDRO Diet/Activity/Treatments Diet: Diet as Tolerated and Regular Activity: As tolerated Oxygen: N/A Visit Report/Discharge Packet Instructions: DI for Incision and Drainage, DI for Cat Bite Stand Alone Forms: Patient Portal/API, Stroke Signs & Symptoms, Surgery Discharge Quality VTE Deep Vein Thrombosis/Pulmonary Embolism Present on Admission: No
[2025-04-30 08:11] LABS: CRP, High Sensitivity 4.40 mg/L (0.00-3.00)
[2025-04-30 08:11] LABS: CRP, High Sensitivity 1.92 mg/L (0.00-3.00)
--- NOTE | 2025-05-12 02:50 | PC.NURSE ---
Late entry note: At 2114 on 04/28/25 this RN administered 1 tab [place] for pain 02/11. Reassessed @ 2149, pt reports tolerating pain 10/14
== END 2025-04-29 15:10 | disposition home health service (06) | DRG 605 ==
LOC: ED 22:05 → AC 22:09
PROVIDERS: Family Medicine; Hospitalist; Internal Medicine; Orthopaedic Surgery; Physician Assistant Surgical; Admitting Provider Internal Medicine; Emergency Provider Emergency Medicine; Family Provider Family Medicine; Referring Provider Emergency Medicine; Visit Provider Internal Medicine
PROC: 0J9J0ZZ Drainage of Right Hand Subcutaneous Tissue and Fascia, Open Approach (ICD-10-PCS; principal; 2025-04-22 23:00)
DX: S61.452A Open bite of left hand, initial encounter (principal); L02.511 Cutaneous abscess of right hand; L03.113 Cellulitis of right upper limb; G44.89 Other headache syndrome; E78.5 Hyperlipidemia, unspecified; J45.909 Unspecified asthma, uncomplicated; R11.2 Nausea with vomiting, unspecified; W55.01XA Bitten by cat, initial encounter; Z23 Encounter for immunization
CPT/HCPCS: 36415; 71045; 73201; 80048; 80053; 80202; 81003; 82565; 83605; 83690; 84145; 85025; 85027; 85610; 85651; 85730; 86140; 87040; 87070; 87075; 87205; 90471; 96361; 96365; 96367; 96368; 99231; 99232; 99284; 90715; A9270; J0131; J0330; J0696; J1100; J1200; J1650; J1790; J1885; J2250; J2405; J2704; J2765; J3010; J3375; Q9967